=== PATIENT | female | born 2000 | race Caucasian/White ===

== ENCOUNTER 2020-12-04 07:39 | Day surgery (SDC) | payer OTHER ==
[2020-12-04 08:13] LABS: Absolute Lymphocytes (CBC) 1.9 K/uL (0.7-4.9); Basophils % 0.5 % (0-1.3); Hematocrit 40.6 % (36.0-45.0); Lymphocytes % 41.3 % (15.3-44.8); MPV 7.9 fL (7.6-11.3); RBC Red Blood Cell Count 4.53 M/uL (3.86-4.86)
[2020-12-04 08:24] LABS: BUN Blood Urea Nitrogen 13 mg/dL (7-18); Bicarbonate 27 mmol/L (21-32); Glucose Level 106 mg/dL (74-106); Potassium 4.3 mmol/L (3.5-5.1); Sodium Level 139 mmol/L (136-145)
[2020-12-04] MEDS ORDERED: Ringers Lactate 1,000 ML IV ONE (08:41)
[2020-12-04] MEDS: CEFAZOLIN/SWI 1gm 1 GM/10 ML SYR ONE ×3 (09:22→10:18)
[2020-12-04] MEDS ORDERED: BUPIVACAINE 0.5% PF 10 ML VIAL ONE (09:50)
[2020-12-04] MEDS ORDERED: METHYLENE BLUE 0.5% 10 ML AMP ONE (09:50)
[2020-12-04] MEDS ORDERED: CELECOXIB 100 MG CAPSULE ONE (09:52)
[2020-12-04] MEDS ORDERED: ACETAMINOPHEN 500 MG TAB ONE (09:52)
[2020-12-04] MEDS ORDERED: propofoL 200 MG/20 ML VIAL IV ONE (10:28)
[2020-12-04] MEDS ORDERED: MIDAZOLAM HCL 2 MG/2 ML INJ ONE (10:29)
[2020-12-04] MEDS ORDERED: ONDANSETRON 4 MG/2 ML VIAL ONE ×2 (10:29→12:34)
[2020-12-04] MEDS ORDERED: FENTANYL CITR 100 MCG/2 ML ONE ×2 (10:29→11:05)
[2020-12-04] MEDS ORDERED: dexAMETHasone 10 MG/ML VIAL ONE (10:30)
[2020-12-04] MEDS ORDERED: GLYCOPYRROLATE 0.2 MG/ML SYR ONE (10:30)
[2020-12-04] MEDS ORDERED: LIDOCAINE 1% MPF 5 ML VIAL ONE (10:30)
[2020-12-04] MEDS ORDERED: NEOSTIGMINE 1 MG/ML -5 ML ONE (10:30)
--- NOTE | 2020-12-04 11:02 | P.BOP ---
Preoperative diagnosis: infected pilonidal cyst Postoperative diagnosis: same Primary procedure: Wide excision of infected pilonidal [id number] Estimated blood loss: <10cc Specimen: cyst Findings: infected pilonidal cyst Anesthesia: General Transferred to: Recovery Room Condition: Good
[2020-12-04] MEDS ORDERED: KETOROLAC 30 MG/ML INJ ONE (11:05)
[2020-12-04] MEDS: FENTANYL CITR 100 MCG/2 ML ONE ×2 (11:12→11:40)
[2020-12-04 11:25] VITALS: O2SAT 100
--- NOTE | 2020-12-04 11:55 | DS ---
Diagnosis: Infected pilonidal cyst. Procedure: Wide excision of infected pilonidal cyst. Disposition: Home. Discharge Instructions: Packing daily. Follow up in my office on Friday if they need some help w ith the packing. Medications include Tylenol No. 3 q.4 hours p.r.n. pain going to be able to continue working the rest of the week. The patient is to have her antibiotics with the pain medi cation and just in case. Since we know she is going to use them anyway, we will proceed w ith the prescription. CANDE Voice ID: [id number] Report ID: [id number]
--- NOTE | 2020-12-04 11:55 | OP ---
Date of Procedure: 12/04/2020 Surgeon: Julien Jean MD Preoperative Diagnosis: Infected pilonidal cyst. Postoperative Diagnosis: Infected pilonidal cyst. Procedure: Wide excision of infected pilonidal cyst, 4 x 3 x 2 cm. Estimated Blood Loss: Less than 10 mL. Specimen: Cyst. Findings: Infected pilonidal cyst. Anesthesia: General plus local. Indication: This is the case of a 20-year-old patient, who comes to us with a tender buttock area an d parasacral region. When she was seen on Friday, she was so tender that she did not allow us to get into the pilonidal cyst under local anesthetic and she had eaten at that moment, so we proceeded to do an I and D of an abscess adjacent to this pilonidal cyst at the office and then booked her today f or wide excision of pilonidal cyst under anesthesia as patient allowed me. The benefits, alternative s, and risks of wide excision were fully explained, which included but not limited to infection, blee ding, damage to adjacent structures, anesthesia complication, nonhealing wound, IL, and even . She also understands this may not relieve symptoms. She might need more than one surgical interventi on. She understands she will require wound care in that area. Mother is at bedside. She feels comf ortable doing dressing changes. Procedure In Detail: The patient was brought to the operating room, placed in supine position. Anes thesia was done without complication. The patient was placed in prone position with proper protectio n. The cavity was re-delineated since the patient had a previous abscess in that region, so we proce eded to delineate the area and then after that make a wide excision of that area with the size descri bed above all the way down to coccyx bone. Bone was not exposed. The cyst was removed. The area wa s irrigated and the area was packed with iodoform packing. The patient tolerated the procedure well. Local anesthesia was applied to the area. The patient was sent to recovery in stable condition. DELMI/NISH Voice ID: [id number] Report ID: [id number]
[2020-12-04] MEDS ORDERED: CODEINE 30MG/APAP 300MG TAB ONE (12:33)
[2020-12-04 12:55] VITALS: BP 103/56; TEMP 97.5
== END 2020-12-04 12:50 | disposition home or self-care (01) ==
LOC: OR 07:39
PROVIDERS: ATTEND Surgery
PROC: 0JB90ZZ Excision of Buttock Subcutaneous Tissue and Fascia, Open Approach (ICD-10-PCS; principal; 2020-12-04 10:00)
DX: L05.91 Pilonidal cyst without abscess (principal); Z20.822 Contact with and (suspected) exposure to COVID-19
CPT/HCPCS: 85025; 80048; 36415; 81025; 88304; 11770; U0003; J2704; J2250; J3010 ×3; J1100; J2710; J0690; J7120; J2405 ×2

== ENCOUNTER 2021-05-03 15:36 | Emergency (ER) | payer OTHER ==
[2021-05-03 16:40] LABS: Urine Blood Negative (Negative); Urine Glucose Negative (Negative); Urine Protein Negative (Negative)
[2021-05-03] MEDS ORDERED: NA CHLORIDE 0.9% 1,000 ML ONE (17:02)
[2021-05-03] MEDS ORDERED: METOCLOPRAMIDE 10 MG/2mL INJ ONE (17:02)
[2021-05-03] MEDS ORDERED: DIPHENHYDRAMINE 50 MG/ML VIAL ONE ×2 (17:02→17:25)
--- NOTE | 2021-05-03 17:02 | RAD REPORT ---
EXAM DESCRIPTION: CT - Head Brain Wo Cont - 05/03/2021 4:51 pm CLINICAL HISTORY: HEADACHE COMPARISON: No comparisons TECHNIQUE: All CT scans are performed using dose optimization technique as appropriate and may inclu de automated exposure control or mA/KV adjustment according to patient size. FINDINGS: No intracranial hemorrhage, hydrocephalus or extra-axial fluid collection.No areas of brai n edema or evidence of midline shift. The paranasal sinuses and mastoids are clear. The calvarium is intact. IMPRESSION: No acute intracranial abnormality.
[2021-05-03] MEDS ORDERED: LORazepam 2 MG/ML VIAL ONE (17:24)
[2021-05-03 17:27] LABS: SARS-COV-2 RT PCR POSITIVE (NEGATIVE)
[2021-05-03 17:31] LABS: Absolute Lymphocytes (CBC) 2.2 K/uL (0.7-4.9); Hematocrit 42.2 % (36.0-45.0); Lymphocytes % 50.3 % (15.3-44.8); MPV 8.6 fL (7.6-11.3); RBC Red Blood Cell Count 4.67 M/uL (3.86-4.86)
[2021-05-03 17:39] LABS: ALT/SGPT 22 U/L (12-78); AST/SGOT 22 U/L (15-37); Albumin 3.7 g/dL (3.4-5.0); Alkaline Phosphatase 50 U/L (45-117); BUN Blood Urea Nitrogen 9 mg/dL (7-18); Bicarbonate 31 mmol/L (21-32); Bilirubin Direct < 0.1 mg/dL (0-0.2); Bilirubin Total 0.2 mg/dL (0.2-1.0); Glucose Level 96 mg/dL (74-106); Lipase 66 U/L (73-393); Potassium 3.8 mmol/L (3.5-5.1); Protein, Total 7.1 g/dL (6.4-8.2); Sodium Level 140 mmol/L (136-145)
--- NOTE | 2021-05-03 18:02 | ER ---
Nurse's Notes [facility] Name: Veda Kraus Age: 20 yrs Sex: Female : 2000 Arrival Date: 05/03/2021 Time: 15:41 Bed 24 Private MD: Tatum Arroyo K Diagnosis: Coronavirus infection, unspecified Presentation: 05/03 15:59 Chief complaint: Patient states: she has severe neck pain that began 05/01/2021. ap3 Patient denies having this pain in the past. Patient also reports having headache, vomiting, and fever. Coronavirus screen: fever, headache, muscle pain, Client presents with at least one sign or symptom that may indicate coronavirus-19. Standard/surgical mask placed on the client. Provider contacted for isolation considerations. Ebola Screen: No symptoms or risks identified at this time. Initial Sepsis Screen: Does the patient meet any 2 criteria? No. Patient's initial sepsis screen is negative. Does the patient have a suspected source of infection? No. Patient's initial sepsis screen is negative. Risk Assessment: Do you want to hurt yourself or someone else? Patient reports no desire to harm self or others. Onset of symptoms was May 01, 2021. 15:59 Method Of Arrival: Ambulatory ap3 15:59 Acuity: SHIRA 3 ap3 Triage Assessment: 16:04 General: Appears in no apparent distress. Behavior is cooperative, anxious. Pain: ap3 Complains of pain in posterior neck, back, and head Pain began 2-3 days ago. Neuro: Level of Consciousness is awake, alert, obeys commands, Oriented to person, place, time, situation, Appropriate for age Moves all extremities. Gait is steady, Speech is normal, Facial symmetry appears normal. Respiratory: Airway is patent Respiratory effort is even, unlabored, Respiratory pattern is regular, symmetrical. GI: Reports nausea, vomiting. 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 Flu vaccine is up to date. - Social history:: Smoking status: Patient reports the use of cigarette tobacco products, smokes one-half pack cigarettes per day, Reported history of juuling and/or vaping. Patient uses street drugs, marijuana. Screenin:05 Abuse screen: Denies threats or abuse. Nutritional screening: No deficits noted. ap3 Tuberculosis screening: No symptoms or risk factors identified. Fall Risk None identified. Assessment: 16:00 General: Appears uncomfortable, Behavior is anxious. Pain:. Neuro: Level of ke1 Consciousness is awake, alert, Oriented to person, place, time, situation, Appropriate for age. 17:37 Reassessment: Patient is alert, oriented x 3, equal unlabored respirations, skin jd3 warm/dry/pink. pt expressing anxiety. provider with verbal order for medication and to bedside to discuss plan of care with the pt. 18:01 Reassessment: Patient and/or family updated on plan of care and expected duration. Pain jd3 level reassessed. Patient is alert, oriented x 3, equal unlabored respirations, skin warm/dry/pink. pt reporting to want to leave AMA. pt signed AMA form. pt was instructed to wait for ride due to medications she received. pt reported her mother was on the way. even and steady gait to lobby to wait for ride. Vital Signs: 15:59 BP 122 / 80; Pulse 87; Resp 18; Temp 99.9(O); Pulse Ox 100% on R/A; Weight 61.23 kg; ap3 Height 5 ft. 2 in. (157.48 cm); Pain 7/10; 17:38 BP 124 / 84; Pulse 86; Resp 19 S; Pulse Ox 100% on R/A; jd3 15:59 Body Mass Index 24.69 (61.23 kg, 157.48 cm) ap3 ED Course: 15:41 Patient arrived in ED. am2 15:43 Tatum Arroyo MD is Private Physician. am2 15:45 Joao Gomez PA is PHCP. [facility] 15:45 Ugo Soto MD is Attending Physician. jmm 16:01 Triage completed. ap3 16:06 Arm band placed on right wrist. ap3 16:18 COVID-19/FLU A+B (Document "Date of Onset" if Symptomatic) Sent. jd3 16:50 CT Head Brain wo Cont In Process Unspecified. EDMS 16:58 Syd Garcia, SHANT is Primary Nurse. ke1 17:12 COVID-19/FLU A+B (Document "Date of Onset" if Symptomatic) Sent. ld1 17:12 Inserted saline lock: 20 gauge in right antecubital area, using aseptic technique. ld1 Blood collected. 17:38 Patient has correct armband on for positive identification. Bed in low position. Call jd3 light in reach. Side rails up X 1. Pulse ox on. NIBP on. 18:01 Tatum Arroyo MD is Referral Physician. [facility] 18:01 No provider procedures requiring assistance completed. IV discontinued, intact, jd3 bleeding controlled, No redness/swelling at site. Pressure dressing applied. Administered Medications: 17:11 Drug: NS 0.9% 1000 ml Route: IV; Rate: 1 bolus; Site: right antecubital; ld1 18:04 Follow up: Response: No adverse reaction; IV Status: Order to discontinue infusion; IV jd3 Intake: 700ml 17:11 Drug: Reglan (metoCLOPramide) 20 mg Route: IVP; Site: right antecubital; ld1 18:04 Follow up: Response: No adverse reaction jd3 17:11 Drug: diphenhydrAMINE 12.5 mg Route: IVP; Site: right antecubital; ld1 18:05 Follow up: Response: No adverse reaction jd3 17:35 Drug: Benadryl (diphenhydrAMINE) 25 mg Route: IVP; Site: right antecubital; ke1 18:03 Follow up: Response: No adverse reaction jd3 17:36 Drug: Ativan (LORazepam) 0.5 mg Route: IVP; Site: right antecubital; ke1 18:03 Follow up: Response: No adverse reaction jd3 Intake: 18:04 IV: 700ml; Total: 700ml. jd3 Outcome: 18:01 AMA AMA form signed jd3 18:01 Condition: stable 18:01 Instructed on follow up and referral plans. 18:05 Patient left the ED. jd3 Signatures: Dispatcher [employer] EDMS Joao Gomez PA PA jmm Moreno, Amanda am2 Jian Hoyt RN RN jd3 Meena Tinajero, RN RN ap3 Tabatha Gorman, RN RN ld1 Syd Garcia, RN RN ke1
--- NOTE | 2021-05-03 18:02 | EDPHYS ---
Physician Documentation [facility] Name: Veda Kraus Age: 20 yrs Sex: Female : 2000 Arrival Date: 05/03/2021 Time: 15:41 Bed 24 Private MD: Tatum Arroyo K ED Physician Ugo Soto HPI: 05/03 16:40 This 20 yrs old Female presents to ER via Ambulatory with complaints of Neck Pain, jmm >24Hrs Old, Headache. 16:40 The patient complains of pain to the left base of the skull and right base of the jmm skull. Onset: The symptoms/episode began/occurred gradually, 2 day(s) ago. Associated signs and symptoms: Pertinent positives: fever, vomiting. This is a 20-year-old female with history of chronic back pain that presents emerged department with complaints of headache, chills, back pain, vomiting. Patient states symptoms began this past Friday with some chills and states that her lower back pain ascended up to her neck into the base of her skull. Patient states that she normally does vomit in the mornings that she attributes to anxiety. Patient denies abdominal pain but states having some shortness of breath.. 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 Flu vaccine is up to date. - Social history:: Smoking status: Patient reports the use of cigarette tobacco products, smokes one-half pack cigarettes per day, Reported history of juuling and/or vaping. Patient uses street drugs, marijuana. ROS: 16:40 Constitutional: Positive for body aches, chills. jmm 16:40 Neck: Positive for pain at rest. 16:40 Respiratory: Positive for shortness of breath. 16:40 Abdomen/GI: Positive for vomiting. 16:40 Back: Positive for pain with movement. 16:40 Neuro: Positive for headache. 16:40 All other systems are negative. Exam: 16:40 Constitutional: This is a well developed, well nourished patient who is awake, alert, jmm and in no acute distress. Head/Face: atraumatic. Eyes: EOMI, no conjunctival erythema appreciated ENT: Moist Mucus Membranes 16:40 Chest/axilla: Normal chest wall appearance and motion. 16:40 Skin: General appearance color normal MS/ Extremity: Moves all extremities, no obvious deformities appreciated, no edema noted to the lower extremities Neuro: Awake and alert Psych: Behavior is normal, Mood is normal, Patient is cooperative and pleasant 16:40 Neck: ROM/movement: is normal, is supple. 16:40 Cardiovascular: Rate: normal, Rhythm: regular, Pulses: no pulse deficits are appreciated. 16:40 Respiratory: the patient does not display signs of respiratory distress, Respirations: normal, Breath sounds: are clear throughout. 16:40 Abdomen/GI: Inspection: abdomen appears normal, Bowel sounds: normal, Palpation: soft, nontender, in all quadrants. 16:40 Back: CVA tenderness, is absent. 16:40 Musculoskeletal/extremity: ROM: intact in all extremities. Vital Signs: 15:59 BP 122 / 80; Pulse 87; Resp 18; Temp 99.9(O); Pulse Ox 100% on R/A; Weight 61.23 kg; ap3 Height 5 ft. 2 in. (157.48 cm); Pain 7/10; 17:38 BP 124 / 84; Pulse 86; Resp 19 S; Pulse Ox 100% on R/A; jd3 15:59 Body Mass Index 24.69 (61.23 kg, 157.48 cm) ap3 MDM: 16:39 Patient medically screened. [facility] 18:00 Data reviewed: vital signs, nurses notes. ED course: After administration of Reglan, [facility] patient became more anxious. Patient states her nausea was relieved. But requested to leave. Notify the patient she was Covid positive for still waiting the rest of the studies. Patient appeared to be able to make rational decisions and decided that she would prefer to sign out AGAINST MEDICAL ADVICE. Patient was given strict return precautions. Patient understood and agrees to plan of care.. 05/03 16:06 Order name: COVID-19/FLU A+B (Document "Date of Onset" if Symptomatic); Complete Time: ap3 17:36 02 16:39 Order name: Basic Metabolic Panel; Complete Time: 17:40 [facility] 05/03 16:39 Order name: CBC with Diff; Complete Time: 17:36 [facility] 05/03 16:39 Order name: Hepatic Function; Complete Time: 17:40 [facility] 05/03 16:39 Order name: Lipase; Complete Time: 17:40 [facility] 05/03 16:39 Order name: [place] Screen Profile [facility] 05/03 16:39 Order name: Strep; Complete Time: 17:38 [facility] 05/03 16:40 Order name: Urine Dipstick-Ancillary; Complete Time: 16:44 [facility] 05/03 16:40 Order name: CT Head Brain wo Cont; Complete Time: 17:03 [facility] 05/03 16:40 Order name: Urine --Ancillary (enter results); Complete Time: 17:03 [facility] 05/03 17:37 Order name: Throat Culture [facility] 05/03 16:14 Order name: Urine Dipstick-Ancillary (obtain specimen); Complete Time: 16:59 [facility] 05/03 16:14 Order name: Urine Test (obtain specimen); Complete Time: 16:59 [facility] 05/03 16:39 Order name: IV Saline Lock; Complete Time: 17:12 [facility] 05/03 16:39 Order name: Labs collected and sent; Complete Time: 17:12 [facility] Administered Medications: 17:11 Drug: NS 0.9% 1000 ml Route: IV; Rate: 1 bolus; Site: right antecubital; ld1 18:04 Follow up: Response: No adverse reaction; IV Status: Order to discontinue infusion; IV jd3 Intake: 700ml 17:11 Drug: Reglan (metoCLOPramide) 20 mg Route: IVP; Site: right antecubital; ld1 18:04 Follow up: Response: No adverse reaction jd3 17:11 Drug: diphenhydrAMINE 12.5 mg Route: IVP; Site: right antecubital; ld1 18:05 Follow up: Response: No adverse reaction jd3 17:35 Drug: Benadryl (diphenhydrAMINE) 25 mg Route: IVP; Site: right antecubital; ke1 18:03 Follow up: Response: No adverse reaction jd3 17:36 Drug: Ativan (LORazepam) 0.5 mg Route: IVP; Site: right antecubital; ke1 18:03 Follow up: Response: No adverse reaction jd3 Disposition: 05/04 12:52 Co-signature as Attending Physician, Ugo Soto MD I agree with the assessment and sp3 plan of care. Disposition Summary: 05/03/21 18:01 Left Against Medical Advice Location: Home jmm Problem: new jmm Symptoms: are unchanged jmm Condition: Stable jmm Diagnosis - Coronavirus infection, unspecified jmm Followup: [facility] - With: Tatum Arroyo MD - When: 2 - 3 days - Reason: Recheck today's complaints, Continuance of care, Re-evaluation by your physician Discharge Instructions: - Discharge Summary Sheet [facility] - COVID-19 jmm Signatures: Dispatcher [employer] Joao Ramirez PA PA jmm Davies, Jonathon, RN RN jd3 eMena Tinajero RN RN ap3 Tabatha Gorman RN RN ld1 Ugo Soto MD MD sp3 Syd Garcia RN RN ke1
[2021-05-03 18:31] VITALS: TEMP 99.9; O2SAT 100
[2021-05-03 18:32] VITALS: BP 124/84
== END 2021-05-03 18:05 | disposition left against medical advice (07) ==
LOC: ER 15:36
DX: U07.1 COVID-19 (principal); F17.210 Nicotine dependence, cigarettes, uncomplicated
CPT/HCPCS: 96361; 87070; 85025; 80048; 36415; 86308; 81025; 80076; 87081; 81003; 83690; 0240U; 70450; 96375; 96374; 99284; J2765; J1200 ×2; J7030

== ENCOUNTER 2023-07-28 13:57 | Emergency (ER) | payer OTHER ==
--- OUTSIDE RECORDS SUMMARY | 2023-07-28 14:00 | XMS REPORT | Continuity of Care Document ---
Author Name Unknown Address [address] [facility] [address] [place] [address] [facility] thconnect Address [address] [address] [address] [place] [address] Care Team Providers Care Molded Goods Operator Name Role Phone Lazo, Patti Attending Clinician Unavailable [email or web address]_Kadiyala_S Attending Clinician Unavaila ble [email or web address]_Kadiyala_S Admitting Clinician Unavaila ble Payers Payer Name Policy Type Policy Number Effective Date Expirati on Date Source AET[employer] 53 [id number] 2022 00:00:00 [facility] Problems Condition Name Condition Details Condition Category Status Onset Date Resolution Date Last Treatment Date Treating Clinician Comments Source Initiation of depot contracept ion done Initiation of Depot Contracept ion Done Problem Active 08-12 00:00: 00 [facility] Surveillan ce of subcutaneo us contracept dell implant Surveillan ce of Subcutaneo us Contracept dell Implant Problem Active 08-12 00:00: 00 [facility] Major depression , single episode Major Depression , Single Episode Problem Active 2017-03 00:00: 00 [facility] Gonorrhea of lower genitourin carol tract Gonorrhea of Lower Genitourin carol Tract Problem Active 10-27 00:00: 00 [facility] Counseling Counseling Problem Active 10-22 00:00: 00 [facility] Irregular periods Irregular Periods Problem Active 04-10 00:00: 00 [facility] Abnormal weight gain Abnormal Weight Gain Problem Active 04-10 00:00: 00 [facility] Herpetic vulvovagin itis Herpetic Vulvovagin itis Problem Active 10-08 00:00: 00 [facility] Chlamydial infection Chlamydial Infection Problem Active 10-08 00:00: 00 [facility] 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 High 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 al Behavior Problem Active 10-01 00:00: 00 [facility] Ulceration of vulva Ulceration of Vulva Problem Active 10-01 00:00[facility] Contracept ion care education Contracept ion Care Education Problem Active 08-27 00:00: 00 [facility] Postcoital bleeding Postcoital Bleeding Problem Active 08-08 00:00: 00 [facility] Acute vaginitis Acute Vaginitis Problem Active 08-08 00:00: 00 [facility] Gynecologi c examinatio n Gynecologi c Examinatio n Problem Active 06-12 00:00: 00 [facility] [id number] Hyperphagi a Problem [facility] [id number] Moderate major depression Problem [facility] [id number] URVASHI (generaliz ed anxiety disorder) Problem [facility] Social History Social Habit Start Date Stop Date Quantity Comments Source History of Tobacco Use [facility] Sex Assigned At [facility] Smoking Status Start Date Stop Date Source Current Every Day Smoker [facility] Former Smoker 2023-02-18 00:00:00 2023-02-18 00:00:00 [facility] Medications Ordered Medication Name Filled Medication Name Start Date Stop Date Current Medication? Ordering Clinician Indication Dosage Frequency Signature (SIG) Comments Components Source No Known Medications No Known Medications No [facility] No Known Medications No Known Medications No [facility] Vital Signs Vital Name Observation Time Observation Value Comments S ource Height 2023-07-15 00:00:00 62 [in_i] [facility] BMI (Body Mass Index) 2023-07-15 00:00:00 24.1 kg/m2 [facility] Body Weight 2023-07-15 00:00:00 132 [lb_av] [facility] BP Diastolic 2023-07-15 00:00:00 72 mm[Hg] [facility] BP Systolic 2023-07-15 00:00:00 128 mm[Hg] [facility] height 2023-02-19 16:20:00 64 [in_i] [facility] weight 2023-02-19 16:20:00 140 [lb_av] Comm on [facility] bmi 2023-02-19 16:20:00 24.03 kg/m2 Comm [facility] height 2023-01-23 10:20:00 64 [in_i] [facility]mo n [facility] weight 2023-01-23 10:20:00 141 [lb_av] Comm on [facility] temperature 2023-01-23 10:20:00 97.1 [degF] Com mon [facility] bmi 2023-01-23 10:20:00 24.2 kg/m2 Commo [facility] oximetry 2023-01-23 10:20:00 [facility] 2023-01-23 10:20:00 17 /min [facility] blood pressure systolic 2023-01-23 10:20:00 144 mm[Hg] [facility] blood pressure diastolic 2023-01-23 10:20:00 82 mm[Hg] [facility] Plan of Care Planned Activity Planned Date Details Comments Source Diagnostic Test Pending 2023-07-15 00:00:00 Ox-eye dasha IgE Ab [Units/volume] in Serum [code = 6196-0] [facility] Diagnostic Test Pending 2023-07-15 00:00:00 Indirect antiglobulin test.IgG specific reagent [Presence] in Serum or Plasma [code = 1005-8] [facility] Future Appointment 2024-07-15 09:15:[address]; [address] [id number] [facility] Encounters Start Date/Time End Date/Time Encounter Type Admission Type Attending [facility] Care Facility Care Department Encounter ID Source 2023-02-18 14:44:00 Outpatient Patti Lazo [facility] [id number] [facility] 2023-01-23 10:24:01 Outpatient Patti Lazo [facility] [id number] [facility] 2023-07-15 00:00:00 2023-07-15 00:00:00 LUCHO Saleh: [address], [place] [address] , Ph. Formerly [facility] - GC_GCBZW_La [facility]* [id number] [facility] 2023-02-19 00:00:00 2023-02-19 00:00:00 OFFICE VISIT ESTAB PT LEVEL 3 [facility] [id number] [facility] 2023-01-23 00:00:00 2023-01-23 00:00:00 OFFICE VISIT NEW PT LEVEL 3 [facility] [id number] [facility] 2023-01-22 00:00:00 2023-01-22 00:00:00 Outpatient GC_GCBZW_Ka diyala_S [facility] [id number] [facility] Results Test Description Test Time Test Comments Results Result Co mments Source HEMOGLOBIN [id number] 00:00:00* Test Item Value Reference Range Interpretation Comme nts HEMOGLOBIN A1c (test code = 4548-4) 5.3 % See_Comment [Automated [employer] Orders] The system which generated this result transmitted reference range: 4.2-5.6 %. The reference range was not used to interpret this result as normal/abnormal. LIPID PANEL WITH REFLEX DIRECT [id number] 00:00:00* Test Item Value Reference Range Interpretation Comme nts CALC LDL CHOL (test code = 65670-4) 84 MG/DL See_Comment [Automated [employer] Orders] The system which generated this result transmitted reference range: <100 MG/DL. The reference range was not used to interpret this result as normal/abnormal. CHOLESTEROL (test code = 2093-3) 160 MG/DL See_Comment [Automated messa ge] The system which generated this result transmitted reference range: <200 MG/DL. The reference range was not used to interpret this result as normal/abnormal. HDL CHOLESTEROL (test code = 2085-9) 62 MG/DL See_Comment [Automated [employer]] The system which generated this result transmitted reference range: >39 MG/DL. The reference range was not used to interpret this result as normal/abnormal. RISK RATIO LDL/HDL (test code = 66712-2) 1.35 RATIO See_Comment [Automated message] The system which generated this result transmitted reference range: <3.22 RATIO. The reference range was not used to interpret this result as normal/abnormal. TRIGLYCERIDES (test code = 2571-8) 61 MG/DL See_Comment [Automated [employer]] The system which generated this result transmitted reference range: <150 MG/DL. The reference range was not used to interpret this result as normal/abnormal. TSH + FREE T4 [id number] 00:00:00* Test Item Value Reference Range Interpretation Comme nts FREE T4 (THYROXINE) (test code = 3024-7) 0.90 NG/DL See_Comment [Automated message] The system which generated this result transmitted reference range: 0.80-1.90 NG/DL. The reference range was not used to interpret this result as normal/abnormal. TSH, THIRD GENERATION (test code = 18765-1) 1.540 UIU/ML See_Comment [Automated messa ge] The system which generated this result transmitted reference range: 0.400-4.100 UIU/ML. The reference range was not used to interpret this result as normal/abnormal. COMPREHENSIVE METABOLIC [id number] 00:00:00* Test Item Value Reference Range Interpretation Comme nts ALBUMIN (test code = 1751-7) 4.3 G/DL See_Comment [Automated [employer]] The system which generated this result transmitted reference range: 3.5-5.2 G/DL. The reference range was not used to interpret this result as normal/abnormal. ALKALINE PHOSPHATASE (test code = 6768-6) 51 U/L See_Comment [Automated message] The system which generated this result transmitted reference range: 40-115 U/L. The reference range was not used to interpret this result as normal/abnormal. BILIRUBIN, TOTAL (test code = 1975-2) 0.4 MG/DL See_Comment [Automated message] The system which generated this result transmitted reference range: <=1.2 MG/DL. The reference range was not used to interpret this result as normal/abnormal. BUN (test code = 3094-0) 10 MG/DL See_Comment [Automated messa ge] The system which generated this result transmitted reference range: 6-20 MG/DL. The reference range was not used to interpret this result as normal/abnormal. CALCIUM (test code = 37894-8) 9.1 MG/DL See_Comment [Automated messa ge] The system which generated this result transmitted reference range: 8.5-10.5 MG/DL. The reference range was not used to interpret this result as normal/abnormal. CALC A/G RATIO (test code = 1759-0) 2.0 RATIO See_Comment [Automated messa ge] The system which generated this result transmitted reference range: 1.0-2.6 RATIO. The reference range was not used to interpret this result as normal/abnormal. CALC BUN/CREAT (test code = 3097-3) 15 RATIO See_Comment [Automated messa ge] The system which generated this result transmitted reference range: 6-28 RATIO. The reference range was not used to interpret this result as normal/abnormal. CALC GLOBULIN (test code = 42132-0) 2.2 G/DL See_Comment [Automated messa ge] The system which generated this result transmitted reference range: 1.9-3.7 G/DL. The reference range was not used to interpret this result as normal/abnormal. CARBON DIOXIDE (test code = 1963-8) 24 MEQ/L See_Comment [Automated messa ge] The system which generated this result transmitted reference range: 19-31 MEQ/L. The reference range was not used to interpret this result as normal/abnormal. CHLORIDE (test code = 2075-0) 106 MEQ/L See_Comment [Automated messa ge] The system which generated this result transmitted reference range: 95-107 MEQ/L. The reference range was not used to interpret this result as normal/abnormal. CREATININE (test code = 2160-0) 0.68 MG/DL See_Comment [Automated messa ge] The system which generated this result transmitted reference range: 0.60-1.30 MG/DL. The reference range was not used to interpret this result as normal/abnormal. eGFR (2020 CKD-EPI) (test code = 32984-6) 125 ML/MIN/1.73 See_Comment [Automated message] The system which generated this result transmitted reference range: >60 ML/MIN/1.73. The reference range was not used to interpret this result as normal/abnormal. GLUCOSE (test code = 1558-6) 93 MG/DL See_Comment [Automated messa ge] The system which generated this result transmitted reference range: 70-99 MG/DL. The reference range was not used to interpret this result as normal/abnormal. POTASSIUM (test code = 2823-3) 4.8 MEQ/L See_Comment [Automated messa ge] The system which generated this result transmitted reference range: 3.5-5.4 MEQ/L. The reference range was not used to interpret this result as normal/abnormal. PROTEIN, TOTAL (test code = 2885-2) 6.5 G/DL See_Comment [Automated messa ge] The system which generated this result transmitted reference range: 6.1-8.3 G/DL. The reference range was not used to interpret this result as normal/abnormal. AST (test code = 1920-8) 17 U/L See_Comment [Automated messa ge] The system which generated this result transmitted reference range: 9-40 U/L. The reference range was not used to interpret this result as normal/abnormal. ALT (test code = 1742-6) 17 U/L See_Comment [Automated messa ge] The system which generated this result transmitted reference range: 5-40 U/L. The reference range was not used to interpret this result as normal/abnormal. SODIUM (test code = 2951-2) 141 MEQ/L See_Comment [Automated messa ge] The system which generated this result transmitted reference range: 133-146 MEQ/L. The reference range was not used to interpret this result as normal/abnormal.
[2023-07-28 15:41] LABS: Absolute Lymphocytes (CBC) 1.6 K/uL (0.7-4.9); Absolute Monocytes 0.3 K/uL (0.1-1.3); Absolute Neutrophil 3.1 K/uL (1.8-8.0); Basophils % 0.4 % (0-1.3); Eosinophils % 0.6 % (0-4.4); Hematocrit 38.9 % (36.0-45.0); Hemoglobin 13.2 g/dL (12.0-15.0); Lymphocytes % 31.2 % (15.3-44.8); MCH 30.7 pg (27.0-35.0); MCHC 33.9 g/dL (32.0-36.0); MCV 90.4 fL (80-100); MPV 9.1 fL (7.6-11.3); Monocytes % 6.9 % (3.3-12.3); Neutrophils % 60.9 % (41.7-73.7); Nucleated Red Blood Cells % 0.1 % (0-0); Platelets 207 thou/uL (152-406); Red Cell Distribution Width 12.6 % (12.1-15.2)
[2023-07-28 15:43] LABS: Specific Gravity < 1.005 (1.005-1.030); Sqamous Epithelial <5 /HPF (None Seen); Urine Bacteria None Seen /HPF (<20); Urine Bilirubin NEGATIVE (Negative); Urine Blood Negative (Negative); Urine Clarity Turbid (Clear); Urine Color Colorless (Yellow); Urine Culture Reflex Order NOT NEEDED; Urine Glucose NEGATIVE (Negative); Urine Ketones NEGATIVE (Negative); Urine Micro Reflex YN NO BILL MICROSCOPIC; Urine Nitrite NEGATIVE (Negative); Urine Protein NEGATIVE (Negative); Urine RBC <5 /HPF (None Seen); Urine Urobilinogen Normal (Normal); Urine WBC <5 /HPF (<5)
[2023-07-28 15:50] LABS: Barbiturates NEGATIVE (NEGATIVE); Benzodiazepines NEGATIVE (NEGATIVE); Cocaine NEGATIVE (NEGATIVE); METHAMPHETAM NEGATIVE (NEGATIVE); Methadone NEGATIVE (NEGATIVE); Opiates NEGATIVE (NEGATIVE); Phencyclidine NEGATIVE (NEGATIVE); THC Cannibis POSITIVE (NEGATIVE)
--- NOTE | 2023-07-28 15:54 | RAD REPORT ---
EXAM DESCRIPTION: RAD - Chest Single View - 07/28/2023 3:46 pm CLINICAL HISTORY: PALPITATIONS Chest pain. COMPARISON: Chest Pa And Lat (2 Views) dated 12/05/2016 FINDINGS: Portable technique limits examination quality. The lungs are grossly clear. The heart is normal in size. No displaced fractures. IMPRESSION: No acute intrathoracic process suspected.
[2023-07-28 15:59] LABS: Anion Gap 3.4 mEq/L (5.0-15.0); BUN Blood Urea Nitrogen 6 mg/dL (7-18); Bicarbonate 29 mEq/L (21-32); Glomerular Filtration Rate 109 ml/min (=/>90); Glucose Level 115 mg/dL (74-106); Potassium 3.4 mEq/L (3.5-5.1); Sodium Level 137 mEq/L (136-145)
[2023-07-28 16:01] LABS: Troponin High Sensitivity < 3.0 pg/mL (<58.9)
--- NOTE | 2023-07-28 16:25 | ER ---
Nurse's Notes [facility] Name: Veda Kraus Age: 22 yrs Sex: Female : 2000 Arrival Date: 07/28/2023 Time: 13:57 Bed 8 Private MD: Diagnosis: Palpitations Presentation: 07/27 14:08 Chief complaint: Patient states: "I feel shaky, like my heart is beating fast, and I as6 have chest pain". Coronavirus screen: At this time, the client does not indicate any symptoms associated with coronavirus-19. Ebola Screen: No symptoms or risks identified at this time. Initial Sepsis Screen: Does the patient meet any 2 criteria? No. Patient's initial sepsis screen is negative. Does the patient have a suspected source of infection? No. Patient's initial sepsis screen is negative. Risk Assessment: Do you want to hurt yourself or someone else? Patient reports no desire to harm self or others. Onset of symptoms was July 28, 2023. 14:08 Method Of Arrival: Ambulatory as6 14:08 Acuity: SHIRA 3 as6 Triage Assessment: 14:10 General: Appears in no apparent distress. Behavior is calm, cooperative. Pain: as6 Complains of pain in chest. 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 - Infectious Disease History:: Denies. - Social history:: Smoking status: Patient denies any tobacco usage or history of. Screenin:15 [facility] ED Fall Risk Assessment (Adult) History of falling in the last 3 months, rs5 including since admission No falls in past 3 months (0 pts) Confusion or Disorientation No (0 pts) Intoxicated or Sedated No (0 pts) Impaired Gait No (0 pts) Mobility Assist Device Used No (0 pt) Altered Elimination No (0 pt) Score/Fall Risk Level 0 - 2 = Low Risk Oriented to surroundings, Maintained a safe environment. 14:15 Abuse screen: Denies threats or abuse. Nutritional screening: No deficits noted. rs5 Tuberculosis screening: No symptoms or risk factors identified. Assessment: 14:30 Reassessment: Pt arrived in room . rs5 14:33 General: Appears in no apparent distress. uncomfortable, Behavior is cooperative, rs5 anxious. Pain: Denies pain. Neuro: Level of Consciousness is awake, alert, obeys commands, Oriented to person, place, time, situation. Cardiovascular: Patient's skin is warm and dry. Rhythm is regular. Cardiovascular: Reports palpitations. Respiratory: Airway is patent Respiratory effort is even, unlabored, Respiratory pattern is regular, symmetrical. GI: Abdomen is flat, non-distended, Abd is soft and non tender X 4 quads. : No signs and/or symptoms were reported regarding the genitourinary system. EENT: No signs and/or symptoms were reported regarding the EENT system. Derm: Skin is intact, Skin is pink, warm \\T\\ dry. Musculoskeletal: Range of motion: intact in all extremities. 14:45 Reassessment: Awaiting provider to put in orders. rs5 15:00 Reassessment: Awaiting provider to put in orders, provider notified. rs5 15:00 Cardiovascular: Denies palpitations, Rhythm is regular. rs5 15:00 Reassessment: Patient and/or family updated on plan of care and expected duration. Pain rs5 level reassessed. Patient is alert, oriented x 3, equal unlabored respirations, skin warm/dry/pink. 15:48 Reassessment: No changes from previously documented assessment. rs5 16:20 Reassessment: No changes from previously documented assessment. rs5 Vital Signs: 14:08 BP 127 / 91; Pulse 100; Resp 18 S; Temp 97.9(O); Pulse Ox 100% on R/A; Weight 57.61 kg as6 (R); Height 5 ft. 3 in. (R); Pain 3/10; 16:20 BP 120 / 81; Pulse 80; Resp 18; Pulse Ox 99% on R/A; rs5 14:08 Body Mass Index 22.50 (57.61 kg, 160.02 cm) as6 14:08 Pain Scale: Adult as6 ED Course: 14:01 Patient arrived in ED. im 14:02 Candace Feldman MD is Attending Physician. gb1 14:09 Triage completed. as6 14:10 Arm band placed on. as6 14:15 Patient has correct armband on for positive identification. Placed in gown. Bed in low rs5 position. Call light in reach. Side rails up X2. 14:15 No provider procedures requiring assistance completed. rs5 15:15 German Mendoza, RN is Primary Nurse. rs5 15:30 Inserted saline lock: 20 gauge in right antecubital area, using aseptic technique. rs5 Blood collected. 15:48 XRAY Chest (1 view) In Process Unspecified. EDMS 15:49 EKG done, by ED staff. jg11 16:35 IV discontinued, intact, bleeding controlled, No redness/swelling at site. Pressure rs5 dressing applied. Administered Medications: No medications were administered Medication: 15:49 VIS not applicable for this client. rs5 Outcome: 16:24 Discharge ordered by . ashkan 16:35 Discharged to home ambulatory, rs5 16:35 Condition: stable 16:35 Discharge instructions given to patient, family, Instructed on discharge instructions, follow up and referral plans. Demonstrated understanding of instructions, follow-up care, 16:38 Patient left the ED. rs5 Signatures: Dispatcher [employer] EDSukhjinder Rico RN RN as6 German Mendoza, RN RN rs5 Tarsha Farah Gina, MD MD gb1 Vaughn Gonzales jg11 Corrections: (The following items were deleted from the chart) 15:46 15:35 Inserted saline lock: 20 gauge in right antecubital area, using aseptic rs5 technique. Blood collected. rs5
--- NOTE | 2023-07-28 16:25 | EDPHYS ---
Physician Documentation [facility] Name: Veda Kraus Age: 22 yrs Sex: Female : 2000 Arrival Date: 07/28/2023 Time: 13:57 Bed 8 Private MD: ED Physician Candace Feldman HPI: 07/27 16:24 This 22 yrs old Female presents to ER via Ambulatory with complaints of gb1 Palpitations. 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 - Infectious Disease History:: Denies. - Social history:: Smoking status: Patient denies any tobacco usage or history of. Exam: 16:24 Constitutional: This is a well developed, well nourished patient who is awake, alert, gb1 and in no acute distress. Head/Face: Normocephalic, atraumatic. Eyes: Pupils equal round and reactive to light, extra-ocular motions intact. Lids and lashes normal. Conjunctiva and sclera are non-icteric and not injected. Cornea within normal limits. Periorbital areas with no swelling, redness, or edema. ENT: Nares patent. No nasal discharge, no septal abnormalities noted. Tympanic membranes are normal and external auditory canals are clear. Oropharynx with no redness, swelling, or masses, exudates, or evidence of obstruction, uvula midline. Mucous membranes moist. Neck: Trachea midline, no thyromegaly or masses palpated, and no cervical lymphadenopathy. Supple, full range of motion without nuchal rigidity, or vertebral point tenderness. No Meningismus. Chest/axilla: Normal chest wall appearance and motion. Nontender with no deformity. No lesions are appreciated. Cardiovascular: Regular rate and rhythm with a normal S1 and S2. No gallops, murmurs, or rubs. Normal PMI, no JVD. No pulse deficits. Respiratory: Lungs have equal breath sounds bilaterally, clear to auscultation and percussion. No rales, rhonchi or wheezes noted. No increased work of breathing, no retractions or nasal flaring. Abdomen/GI: Soft, non-tender, with normal bowel sounds. No distension or tympany. No guarding or rebound. No evidence of tenderness throughout. Back: No spinal tenderness. No costovertebral tenderness. Full range of motion. Skin: Warm, dry with normal turgor. Normal color with no rashes, no lesions, and no evidence of cellulitis. MS/ Extremity: Pulses equal, no cyanosis. Neurovascular intact. Full, normal range of motion. Neuro: Awake and alert, GCS 15, oriented to person, place, time, and situation. Cranial nerves II-XII grossly intact. Motor strength 5/5 in all extremities. Sensory grossly intact. Cerebellar exam normal. Normal gait. Psych: Awake, alert, with orientation to person, place and time. Behavior, mood, and affect are within normal limits. Vital Signs: 14:08 BP 127 / 91; Pulse 100; Resp 18 S; Temp 97.9(O); Pulse Ox 100% on R/A; Weight 57.61 kg as6 (R); Height 5 ft. 3 in. (R); Pain 3/10; 16:20 BP 120 / 81; Pulse 80; Resp 18; Pulse Ox 99% on R/A; rs5 14:08 Body Mass Index 22.50 (57.61 kg, 160.02 cm) as6 14:08 Pain Scale: Adult as6 MDM: 15:01 Patient medically screened. gb1 16:24 Data reviewed: vital signs, nurses notes, lab test result(s), Beta HCG: cardiac gb1 enzymes, troponin i, CBC, electrolytes, urine drug screen, radiologic studies. 16:27 ED course: 22-year-old female here with heart palpitations that happened when gb1 she was cleaning a friend's home. She is a regular marijuana smoker but denies any other illicit drug use. She has history of chronic back pain as well. She denies any chest tightness or pain, back pain or any type of shortness of breath with her palpitations. She denies any nausea vomiting and at this time any falls or trauma. The pain cannot be recreated here and she is low risk for acute coronary syndrome. Her UDS is positive for marijuana however otherwise negative. At this time I doubt PE, ACS or pneumonia or pneumothorax. I will discharge her home with routine follow-up with her primary care doctor and explicit return precautions as discussed prior to discharge home today with her father is at the bedside.. 07/27 15:13 Order name: Basic Metabolic Panel; Complete Time: 16:23 [facility] 07/27 15:13 Order name: CBC with Diff; Complete Time: 15:58 gb1 07/27 15:13 Order name: Troponin HS; Complete Time: 16:23 gb1 07/27 15:13 Order name: Urinalysis W/Microscopic; Complete Time: 15:58 gb07/27 15:13 Order name: UDS; Complete Time: 15:58 gb07/27 15:59 Order name: Test, Urine 07/27 15:13 Order name: XRAY Chest (1 view); Complete Time: 15:58 07/27 15:13 Order name: Cardiac monitoring; Complete Time: 15:43 gb07/27 15:13 Order name: EKG - Nurse/Tech; Complete Time: 15:43 1 07/27 15:13 Order name: IV Saline Lock; Complete Time: 15:43 gb07/27 15:13 Order name: Labs collected and sent; Complete Time: 15:43 gb07/27 15:13 Order name: O2 Per Protocol; Complete Time: 15:43 1 07/27 15:13 Order name: O2 Sat Monitoring; Complete Time: 15:43 gb1 Administered Medications: No medications were administered Disposition Summary: 07/28/23 16:24 Discharge Ordered Notes: Location: Home gb1 Condition: Stable gb1 Diagnosis - Palpitations gb1 Followup: gb1 - With: Private Physician - When: As needed - Reason: Re-evaluation by your physician Discharge Instructions: - Discharge Summary Sheet gb1 - Palpitations, [id number] gb1 Forms: - Medication Reconciliation Form gb1 - Antibiotic Education gb1 - Prescription Opioid Use gb1 - Patient Portal Instructions gb1 - Leadership Thank You Letter gb1 Signatures: Dispatcher [employer] Sukhjinder Bella RN RN as6 Candace Feldman MD MD gb1 Corrections: (The following items were deleted from the chart) 15:14 15:14 Chest Single View+RAD.RAD.BRZ ordered. EDMS EDMS 15:14 15:14 Urinalysis W/Microscopic+U.LAB.BRZ ordered. EDMS EDMS 15:14 15:14 URINE DRUG SCREEN+UC.LAB.BRZ ordered. EDMS EDMS 15:59 15:59 Test, Urine+UC.LAB.BRZ ordered. EDMS EDMS
[2023-07-28 16:54] LABS: Specific Gravity < 1.005 (1.005-1.030)
[2023-07-28 17:35] VITALS: BP 127/91; TEMP 97.9; O2SAT 100
--- NOTE | 2023-07-29 14:01 | EKG ---
Test Date: 2023-07-28 Test Time: 15:41:24 Finance Attorney: SHILOH MEASUREMENT RESULTS: Intervals: Rate: 80 MS: 158 QRSD: 82 QT: 366 QTc: 422 [place]: P: 54 MS: 158 QRS: 82 T: 65 INTERPRETIVE STATEMENTS: Normal sinus rhythm Normal ECG Compared to ECG 01/27/2006 17:29:29 No significant changes Electronically Signed On 07-29-23 13:58:35 CDT by Fransico Carr
== END 2023-07-28 16:38 | disposition home or self-care (01) ==
LOC: ER 13:57
DX: R00.2 Palpitations (principal)
CPT/HCPCS: 36415; 71045; 80048; 80307; 81001; 81025; 84484; 85025; 93005; 99284

== ENCOUNTER 2024-04-03 09:11 | Emergency (ER) | payer OTHER, SELFPAY ==
--- OUTSIDE RECORDS SUMMARY | 2024-04-03 09:14 | XMS REPORT | Continuity of Care Document ---
Author Name Unknown Address [address] [facility] [place] [address] [facility] thconnect Address [address] [address] [address] [place] [address] Care Team Providers Care Estimator Paperboard Boxes Name Role Phone Patti Lazo Attending Clinician Unavailable [email or web address]_S Attending Clinician Unavaila ble [email or web address]_S Admitting Clinician Unavaila ble Payers Payer Name Policy Type Policy Number Effective Date Expirati on Date Source [employer] 53 [id number] 2022 00:00:00 [facility] Problems Condition Name Condition Details Condition Category [...] Irregular Periods Problem Active 04-10 00:00: 00 [facility] Abnormal weight gain Abnormal Weight Gain Problem Active 04-10 00:00: 00 [facility] Herpetic vulvovagin itis Herpetic Vulvovagin itis Problem Active 10-08 00:00: 00 [facility] Chlamydial infection Chlamydial Infection Problem Active 10-08 00:00: 00 [facility] 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 High 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 al Behavior Problem Active 10-01 00:00: 00 [facility] Ulceration of vulva Ulceration of Vulva Problem Active 10-01 00:00: 00 [facility] Contracept ion care education Contracept ion Care Education Problem Active 08-27 00:00: 00 [facility] Postcoital bleeding Postcoital Bleeding Problem Active 08-08 00:00: 00 [facility] Acute vaginitis Acute Vaginitis Problem Active 08-08 00:00: 00 [facility] Gynecologi c examinatio n Gynecologi c Examinatio n Problem Active 06-12 00:00: 00 [facility] [id number] Hyperphagi a Problem [facility] [id number] Moderate major depression Problem [facility] [id number] URVASHI (generaliz ed anxiety disorder) Problem [facility] Social History Social Habit Start Date Stop Date Quantity Comments Source History of Tobacco Use [facility] Sex Assigned At [facility] Smoking Status Start Date Stop Date Source Current Every Day Smoker [facility] Former Smoker 2024-04-01 00:00:00 2024-04-01 00:00:00 [facility] Medications Ordered Medication Name Filled Medication Name Start Date Stop Date Current Medication? Ordering Clinician Indication Dosage Frequency Signature (SIG) Comments Components Source Xeomin 100 unit intramuscul ar solutionInj ect 28 units by intramuscul ar route. Xeomin 100 unit intramuscul ar solutionInj ect 28 units by intramuscul ar route. 2023-03 09:07: 34 No 28unit( s) Xeomin 100 unit intramuscu lar solutionIn ject 28 units by intramuscu lar route. [facility] buspirone 5 mg tablet TAKE 1 TABLET BY MOUTH TWICE A DAY NEEDED FOR 30 DAYS buspirone 5 mg tablet TAKE 1 TABLET BY MOUTH TWICE A DAY NEEDED FOR 30 DAYS No buspirone 5 mg tablet TAKE 1 TABLET BY MOUTH TWICE A DAY NEEDED FOR 30 DAYS [facility] moxifloxaci n 0.5 % eye drops INSTILL ONE DROP INTO LEFT EYE EVERY 4 HOURS FOR 3 DAYS moxifloxaci n 0.5 % eye drops INSTILL ONE DROP INTO LEFT EYE EVERY 4 HOURS FOR 3 DAYS No moxifloxac in 0.5 % eye drops INSTILL ONE DROP INTO LEFT EYE EVERY 4 HOURS FOR 3 DAYS [facility] busPIRone HCl 10 MG busPIRone HCl 10 MG No 1{table t} BID busPIRone HCl 10 MG Vital Signs Vital Name Observation Time Observation Value Comments S ource Body Weight 2024-03-09 00:00:00 2002 [oz_av] [facility] BP Systolic 2024-03-09 00:00:00 126 mm[Hg] [facility] BMI (Body Mass Index) 2024-03-09 00:00:00 22.5 kg/m2 [facility] BP Diastolic 2024-03-09 00:00:00 76 mm[Hg] [facility] Height 2024-03-09 00:00:00 62.5 [in_i] [facility] height 2023-10-15 08:00:00 64 [in_i] [facility] weight 2023-10-15 08:00:00 120 [lb_av] [facility] bmi 2023-10-15 08:00:00 20.6 kg/m2 [facility] height 2023-09-08 12:00:00 64 [in_i] [facility] weight 2023-09-08 12:00:00 121 [lb_av] [facility] bmi 2023-09-08 12:00:00 20.77 kg/m2 [facility] BP Systolic 2023-07-15 00:00:00 128 mm[Hg] [facility] Height 2023-07-15 00:00:00 62 [in_i] [facility] BMI (Body Mass Index) 2023-07-15 00:00:00 24.1 kg/m2 [facility] Body Weight 2023-07-15 00:00:00 132 [lb_av] [facility] BP Diastolic 2023-07-15 00:00:00 72 mm[Hg] [facility] height 2023-02-19 16:20:00 64 [in_i] [facility] weight 2023-02-19 16:20:00 140 [lb_av] [facility] bmi 2023-02-19 16:20:00 24.03 kg/m2 [facility] height 2023-01-23 10:20:00 64 [in_i] [facility] weight 2023-01-23 10:20:00 141 [lb_av] [facility] temperature 2023-01-23 10:20:00 97.1 [degF] [facility] bmi 2023-01-23 10:20:00 24[facility]2 [facility]-01-23 10:20:00 99 % [facility] respiratory rate 2023-01-23 10:20:00 17 /min [facility] blood pressure systolic 2023-01-23 10:20:00 144 mm[Hg] [facility] blood pressure diastolic 2023-01-23 10:20:00 82 mm[Hg] [facility] Plan of Care Planned Activity Planned Date Details Comments Source Diagnostic Test Pending 2023-07-15 00:00:00 Ox-eye dasha IgE Ab [Units/volume] in Serum [code = 6196-0] [facility] P[facility] 2023-07-15 00:00:00 Indirect antiglobulin test.IgG specific reagent [Presence] in Serum or Plasma [code = 1005-8] [facility] Future Appointment 2024-07-15 09:15:[address], [place] [address] [facility] Encounters Start Date/Time End Date/Time Encounter Type Admission Type Attending [facility] Care Department Encounter ID Source 2024-04-02 13:59:00 [facility] [id number] [facility] 2023-02-18 14:44:00 Outpatient Patti Lazo [facility] [id number] [facility] 2023-01-23 10:24:01 Outpatient Patti Lazo [facility] [id number] [facility] 2024-04-01 00:00:00 2024-04-01 00:00:00 (TEL) [facility] [id number] [facility] 2024-03-09 00:00:00 2024-03-09 00:00:00 Brandon Seymour, MSN, INSPECTOR AIR CARRIER, STATION MECHANIC HELPER-C: [address], [address], [place] [address] , Ph. [facility], Brandon Seymour, SHRUTHI, STATION MECHANIC HELPER-C [id number] [facility] 2023-10-15 00:00:00 2023-10-15 00:00:00 OFFICE VISIT ESTAB PT LEVEL 4 [facility] [id number] [facility] 2023-09-08 00:00:00 2023-09-08 00:00:00 OFFICE VISIT ESTAB PT LEVEL 4 [facility] [id number] [facility] 2023-07-15 00:00:00 2023-07-15 00:00:00 LUCHO Saleh: [address], [place] [address] , Ph. [facility] - GC_GCBZW_La tigist Haji* [id number] [facility] 2023-02-19 00:00:00 2023-02-19 00:00:00 OFFICE VISIT ESTAB PT LEVEL 3 [facility] ST[facility] [id number] [facility] 2023-01-23 00:00:00 2023-01-23 00:00:00 OFFICE VISIT NEW PT LEVEL 3 [facility] STLMLC [id number] [facility] 2023-01-22 00:00:00 2023-01-22 00:00:00 Outpatient GC_GCBZW_Becky marroquin_[facility] [id number] [facility] Results Test Description Test Time Test Comments Results Result Co mments Source
[2024-04-03] MEDS ORDERED: PROMETHAZINE INJ 25 MG/ML AMP ONE (09:49)
[2024-04-03] MEDS ORDERED: NA CHLORIDE 0.9% 500 ML ONE (09:49)
[2024-04-03] MEDS ORDERED: MORPHINE 4 MG/ML SYR ONE (09:49)
[2024-04-03 10:13] LABS: Absolute Eosinophils 0.1 K/uL (0-0.5); Absolute Monocytes 0.5 K/uL (0.1-1.3); Absolute Neutrophil 2.9 K/uL (1.8-8.0); Basophils % 0.4 % (0-1.3); Eosinophils % 1.8 % (0-4.4); Hemoglobin 14.3 g/dL (12.0-15.0); Lymphocytes % 36.8 % (15.3-44.8); MCV 91.3 fL (80-100); MPV 8.8 fL (7.6-11.3); Monocytes % 8.3 % (3.3-12.3); Neutrophils % 52.7 % (41.7-73.7); Platelets 215 thou/uL (152-406); Red Cell Distribution Width 12.7 % (12.1-15.2)
[2024-04-03 10:21] LABS: Albumin 3.8 g/dL (3.4-5.0); Albumin/Globulin Ratio 1.3 (1.1-1.8); Anion Gap 8.3 mEq/L (5.0-15.0); Bilirubin Total 0.6 mg/dL (0.2-1.0); Globulin 2.9 g/dL (2.3-3.5); Potassium 4.3 mEq/L (3.5-5.1); Protein, Total 6.7 g/dL (6.4-8.2)
--- NOTE | 2024-04-03 11:12 | RAD REPORT ---
EXAM: CT Head Brain Wo Cont HISTORY: HEADACHE COMPARISON: 05/03/2021 TECHNIQUE: Multiple contiguous axial images were obtained for a CT of the brain without contrast. Sag ittal and coronal reformats were performed. One or more of the following dose reduction techniques were used: Automated exposure control, adjus tment of the mA and kV according to patient size, and iterative reconstruction. Unless otherwise specified, incidental findings do not require dedicated imaging follow-up. FINDINGS: No evidence of hydrocephalus, intracranial hemorrhage, or extra-axial fluid collection. The brain is normal in morphology. The calvarium is intact. The visualized paranasal sinuses and mastoid air cells are essentially clear . IMPRESSION: No evidence of acute intracranial abnormality.
--- NOTE | 2024-04-03 11:56 | ER ---
Nurse's Notes [facility] Name: Veda Kraus Age: 23 yrs Sex: Female : 2000 Arrival Date: 04/03/2024 Time: :11 Bed 4 Private MD: Patti Lazo Diagnosis: Headache Presentation: 04/03 09:34 Chief complaint: Patient states: back of her head hurts , feels like pressure, started iw yesterday . She also has episodes where half of her face goes numb and she feels disoriented, she had an episode a few years ago and had another episode a few days ago and another yesterday. Coronavirus screen: At this time, the client does not indicate any symptoms associated with coronavirus-19. Ebola Screen: No symptoms or risks identified at this time. Initial Sepsis Screen: Does the patient meet any 2 criteria? No. Patient's initial sepsis screen is negative. Does the patient have a suspected source of infection? No. Patient's initial sepsis screen is negative. Risk Assessment: Do you want to hurt yourself or someone else? Patient reports no desire to harm self or others. 09:34 Method Of Arrival: Ambulatory iw 09:34 Acuity: SHIRA 3 iw 09:45 Onset of symptoms was April 02, 2024. 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 - Infectious Disease History:: Denies. - Social history:: Smoking status: Patient denies any tobacco usage or history of. Screenin:45 [facility] ED Fall Risk Assessment (Adult) History of falling in the last 3 months, aa5 including since admission No falls in past 3 months (0 pts) Confusion or Disorientation No (0 pts) Intoxicated or Sedated No (0 pts) Impaired Gait No (0 pts) Mobility Assist Device Used No (0 pt) Altered Elimination No (0 pt) Score/Fall Risk Level 0 - 2 = Low Risk Oriented to surroundings, Maintained a safe environment, Educated pt \T\ family on fall prevention, incl call for assistance when getting out of bed. Abuse screen: Denies threats or abuse. Nutritional screening: No deficits noted. Tuberculosis screening: No symptoms or risk factors identified. Assessment: 09:45 General: Appears uncomfortable, Behavior is calm, cooperative. Pain: Complains of pain aa5 in forehead and back of head Pain currently is 6 out of 10 on a pain scale. Quality of pain is described as pressure, Pain began 1 day ago. Is continuous. Neuro: Level of Consciousness is awake, alert, obeys commands, Oriented to person, place, time, situation, Reports episodic numbness to right side of face . Cardiovascular: Patient's skin is warm and dry. Respiratory: Airway is patent Respiratory effort is even, unlabored, Respiratory pattern is regular, symmetrical. GI: Abdomen is flat, non-distended, Bowel sounds present X 4 quads. Abd is soft and non tender X 4 quads. Reports nausea, Patient currently denies vomiting. : No signs and/or symptoms were reported regarding the genitourinary system. EENT: No signs and/or symptoms were reported regarding the EENT system. Derm: Skin is pink, warm \T\ dry. Musculoskeletal: Range of motion: intact in all extremities. 10:00 Reassessment: Pt to CT scan . aa5 10:28 Reassessment: Patient is alert, oriented x 3, equal unlabored respirations, skin aa5 warm/dry/pink. Patient states feeling better. 10:28 General: Appears comfortable. aa5 12:50 Reassessment: Patient is alert, oriented x 3, equal unlabored respirations, skin aa5 warm/dry/pink. Vital Signs: 09:38 BP 130 / 80; Pulse 70; Resp 18; Temp 98.1; Pulse Ox 98% ; Weight 58.97 kg; Height 5 ft. iw 2 in. ; Pain 6/10; 12:30 BP 131 / 82; Pulse 75; Resp 16 S; Pulse Ox 100% on R/A; aa5 09:38 Body Mass Index 23.78 (58.97 kg, 157.48 cm) iw 09:38 Pain Scale: Adult iw ED Course: 09:19 Patient arrived in ED. am2 09:20 Patti Lazo is Private Physician. am2 09:26 Ugo Soto MD is Attending Physician. sp3 09:35 Marie Steele, RN is Primary Nurse. aa5 09:37 Triage completed. iw 09:38 Arm band placed on. iw 09:45 Patient has correct armband on for positive identification. Bed in low position. Call aa5 light in reach. Side rails up X2. Adult w/ patient. Pulse ox on. NIBP on. 09:58 Initial lab(s) drawn, by me, sent to lab. Inserted saline lock: 22 gauge in left aa5 antecubital area, using aseptic technique. Blood collected. Flushed with 10 mL NS. 10:16 CT Head Brain wo Cont In Process Unspecified. EDMS 10:17 No provider procedures requiring assistance completed. aa5 11:55 Aneudy Bkaer MD is Referral Physician. sp3 12:50 IV discontinued, intact, bleeding controlled, No redness/swelling at site. Pressure aa5 dressing applied. Administered Medications: 09:58 Drug: morphine IVP or IV 4 mg IVP once over 4 mins Route: IVP; Infused Over: 4 mins; aa5 Site: left antecubital; 10:28 Follow up: Response: No adverse reaction aa5 09:58 Drug: Promethazine IVP 12.5 mg IVP once Route: IVP; Site: left antecubital; aa5 10:28 Follow up: Response: No adverse reaction aa5 09:58 Drug: NS 0.9% IV 500 ml 500 ml IV at 1 bolus once; to be given as a bolus over 30 aa5 minutes Volume: 500 ml; Route: IV; Rate: 1 bolus; Site: left antecubital; 10:28 Follow up: IV Status: Completed infusion; IV Intake: 500ml aa5 Medication: 10:14 VIS not applicable for this client. aa5 Intake: 10:28 IV: 500ml; Total: 500ml. aa5 Outcome: 11:55 Discharge ordered by MD. sp3 12:50 Discharged to home ambulatory, with significant other, aa5 12:50 Condition: improved 12:50 Discharge instructions given to patient, Instructed on discharge instructions, follow up and referral plans. medication usage, Demonstrated understanding of instructions, follow-up care, medications, Prescriptions given X 1, 12:52 Patient left the ED. aa5 Signatures: Dispatcher [employer] EDMS Yaa Salcedo RN RN iw Marie Steele, RN RN aa5 Meena Fried am2 Ugo Soto MD MD sp3 Corrections: (The following items were deleted from the chart) 10:16 09:45 Pain: Complains of pain in forehead and back of head Pain currently is 6 out of aa5 10 on a pain scale. Quality of pain is described as pressure, Pain began Is continuous, aa5 14:15 11:30 BP 131 / 82; Pulse 75bpm; Resp 16bpm; Spontaneous; Pulse Ox 100% RA; aa5 aa5
--- NOTE | 2024-04-03 11:56 | EDPHYS ---
Physician Documentation [facility] Name: Veda Kraus Age: 23 yrs Sex: Female : 2000 Arrival Date: 04/03/2024 Time: 09:11 Bed 4 Private MD: Patti Lazo ED Physician Ugo Soto HPI: 04/03 09:43 This 23 yrs old Female presents to ER via Ambulatory with complaints of head pain/neck sp3 pain, Numbness Of Face - right side on and off. 09:43 23-year-old female with history of anxiety, chronic back pain now presents with sp3 multiple episodes of recurrent headaches particularly posteriorly extending to the right parietal with some facial numbness that comes and goes. Patient has had these in the distant past and then recently multiple over the last few weeks. No formal diagnosis of migraine have been made. Patient does not have a neurologist. Her PCP did schedule an MRI which she has not had a chance to obtain yet. She denies any fever, trauma, neck stiffness, chest pain, shortness of breath, abdominal pain, vomiting, diarrhea, rash, syncope, near syncope, known sick contacts, travel history, or any other signs or symptoms on ROS at this time. No family history of aneurysm or other related pathology.. 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 - Infectious Disease History:: Denies. - Social history:: Smoking status: Patient denies any tobacco usage or history of. ROS: 09:44 Constitutional: Negative for fever, chills, and weight loss, Eyes: Negative for injury, sp3 pain, redness, and discharge, ENT: Negative for injury, pain, and discharge, Neck: Negative for injury, pain, and swelling, Cardiovascular: Negative for chest pain, palpitations, and edema, Respiratory: Negative for shortness of breath, cough, wheezing, and pleuritic chest pain, Abdomen/GI: Negative for abdominal pain, nausea, vomiting, diarrhea, and constipation, Back: Negative for injury and pain, MS/Extremity: Negative for injury and deformity, Skin: Negative for injury, rash, and discoloration, Psych: Negative for depression, anxiety, suicide ideation, homicidal ideation, and hallucinations, Allergy/Immunology: Negative for hives, rash, and allergies, Endocrine: Negative for neck swelling, polydipsia, polyuria, polyphagia, and marked weight changes, Hematologic/Lymphatic: Negative for swollen nodes, abnormal bleeding, and unusual bruising, 09:44 All other systems are negative, Exam: 09:44 Constitutional: This is a well developed, well nourished patient who is awake, alert, sp3 and in no acute distress. Head/Face: Normocephalic, atraumatic. ENT: Nares patent. No nasal discharge, no septal abnormalities noted. External auditory canals are clear. Oropharynx with no redness, swelling, or masses, exudates, or evidence of obstruction, uvula midline. Mucous membranes moist. Neck: Trachea midline, no thyromegaly or masses palpated, and no cervical lymphadenopathy. Supple, full range of motion without nuchal rigidity, or vertebral point tenderness. No Meningismus. Chest/axilla: Normal chest wall appearance and motion. Nontender with no deformity. No lesions are appreciated. Cardiovascular: Regular rate and rhythm with a normal S1 and S2. No gallops, murmurs, or rubs. Normal PMI, no JVD. No pulse deficits. Respiratory: Lungs have equal breath sounds bilaterally, clear to auscultation and percussion. No rales, rhonchi or wheezes noted. No increased work of breathing, no retractions or nasal flaring. Abdomen/GI: Soft, non-tender, with normal bowel sounds. No distension or tympany. No guarding or rebound. No evidence of tenderness throughout. Back: No spinal tenderness. No costovertebral tenderness. Full range of motion. Skin: Warm, dry with normal turgor. Normal color with no rashes, no lesions, and no evidence of cellulitis. MS/ Extremity: Pulses equal, no cyanosis. Neurovascular intact. Full, normal range of motion. Neuro: Awake and alert, GCS 15, oriented to person, place, time, and situation. Cranial nerves II-XII grossly intact. Motor strength 5/5 in all extremities. Sensory grossly intact. Cerebellar exam normal. Normal gait. Psych: Awake, alert, with orientation to person, place and time. Behavior, mood, and affect are within normal limits. 09:44 Eyes: Pupils: Photophobia noted.. Vital Signs: 09:38 BP 130 / 80; Pulse 70; Resp 18; Temp 98.1; Pulse Ox 98% ; Weight 58.97 kg; Height 5 ft. iw 2 in. ; Pain 6/10; 12:30 BP 131 / 82; Pulse 75; Resp 16 S; Pulse Ox 100% on R/A; aa5 09:38 Body Mass Index 23.78 (58.97 kg, 157.48 cm) iw 09:38 Pain Scale: Adult iw MDM: 09:26 Medical Screening Exam initiated sp3 09:45 Data reviewed: vital signs, nurses notes, lab test result(s), radiologic studies. ED sp3 course: 23-year-old female with headache and photophobia. Differential diagnosis includes migraine headache, idiopathic headache, and to a lesser degree intracranial pathology including mass or bleed. I believe patient most likely has migraine headache with aura. Will treat with morphine and Phenergan. Workup will include CT scan of the head, general labs and supportive care. Disposition pending workup and patient course with probable discharge once patient is improved with follow-up to neurology with Dr. Baker and continue outpatient referral for MRI by her PCP which is already in progress.. 11:51 ED course: Workup negative including labs and CT scan. Patient feels better and we will sp3 safely discharge her home at this time.. 04/03 09:42 Order name: CBC with Diff; Complete Time: 11:50 sp3 04/03 09:42 Order name: CMP; Complete Time: 11:50 sp3 04/03 09:42 Order name: CT Head Brain wo Cont; Complete Time: 11:50 sp3 04/03 09:42 Order name: IV Saline Lock; Complete Time: 10:00 sp3 04/03 09:42 Order name: Labs collected and sent; Complete Time: 10:00 sp3 Administered Medications: 09:58 Drug: morphine IVP or IV 4 mg IVP once over 4 mins Route: IVP; Infused Over: 4 mins; aa5 Site: left antecubital; 10:28 Follow up: Response: No adverse reaction aa5 09:58 Drug: Promethazine IVP 12.5 mg IVP once Route: IVP; Site: left antecubital; aa5 10:28 Follow up: Response: No adverse reaction aa5 09:58 Drug: NS 0.9% IV 500 ml 500 ml IV at 1 bolus once; to be given as a bolus over 30 aa5 minutes Volume: 500 ml; Route: IV; Rate: 1 bolus; Site: left antecubital; 10:28 Follow up: IV Status: Completed infusion; IV Intake: 500ml aa5 Disposition Summary: 04/03/24 11:55 Discharge Ordered Notes: Location: Home sp3 Condition: Stable sp3 Diagnosis - Headache sp3 Followup: sp3 - With: Private Physician - When: Upon discharge from the Emergency Department - Reason: Continuance of care Followup: sp3 - With: Aneudy Baker MD - When: Upon discharge from the Emergency Department - Reason: Recheck today's complaints Discharge Instructions: - Discharge Summary Sheet sp3 - General Headache Without Cause sp3 Forms: - Medication Reconciliation Form sp3 - Antibiotic Education sp3 - Prescription Opioid Use sp3 - Patient Portal Instructions sp3 - Leadership Thank You Letter sp3 Prescriptions: - promethazine 25 mg Oral Tablet - take 1 tablet ORAL route every 6 hours As needed; 20 tablet; Refills: 0, sp3 Product Selection Permitted Signatures: Dispatcher [employer] Yaa Banks RN RN iw Marie Steele RN RN aa5 Ugo Soto MD MD sp3
[2024-04-06 15:18] VITALS: BP 130/80; TEMP 98.1; O2SAT 98
== END 2024-04-03 12:52 | disposition home or self-care (01) ==
LOC: ER 09:11
DX: R51.9 Headache, unspecified (principal)
CPT/HCPCS: 85025; 36415; 80053; 70450; 96375; 96374; 99284; J2550; J7040

== ENCOUNTER 2024-08-01 04:49 | Emergency (ER) | payer OTHER ==
--- OUTSIDE RECORDS SUMMARY | 2024-08-01 04:52 | XMS REPORT | Continuity of Care Document ---
Author Name Unknown Address [address] [facility] [place] [address] [facility] [place] Address [address] [facility] [place] [address] Care Team Providers Care Residential Finish Carpenter Name Role Phone Patti Lazo MD Primary Care Physician [phone] Patti Lazo Attending Clinician Unavailable MADELYN WADDELL Attending Clinician Unavailable MADELYN WADDELL Attending Clinician Unavailable Doctor Unassigned, Fitzgerald Attending Clinician U Madelyn Platt MD Attending Clinician [phone] NEREIDA LOZADA Attending Clinician Unavailable 2, [facility] Attending Clinician Unavailable Nereida Lozada DNP Attending Clinician [phone] [email or web address]_Kadiyala_S Attending Clinician Unavaila ble GC_GCBZW_Kadiyala_S Admitting Clinician Unavaila ble Payers Payer Name Policy Type Policy Number Effective Date Expirati on Date Source AET[employer] PPO [id number] 2024 00:00:00 AETNA 53 [id number] [facility] AETNA 53 [id number] 2022 00:00:00 [facility] Problems Condition Name Condition Details Condition Category Status Onset Date Resolution Date Last Treatment Date Treating Clinician Comments Source Normal in first trimester Normal in first trimester Disease Active 06-21 00:00: 00 [facility] Nausea and vomiting during prior to 22 weeks gestation Nausea and vomiting during prior to 22 weeks gestation Disease Active 06-21 00:00: 00 [facility] Vitamin D deficiency Vitamin D Deficiency Problem Active 1 00:00: 00 [facility] Anxiety Anxiety Problem Active 04-08 00:00: 00 [facility] Nightmares Nightmares Problem Active 04-08 00:00: 00 [facility] Insomnia Insomnia Problem Active 04-08 00:00: 00 [facility] Fatigue Fatigue Problem Active 04-08 00:00: 00 [facility] Paresthesi a Paresthesi a Problem Active 04-08 00:00: 00 [facility] Numbness Numbness Problem Active 04-08 00:00: 00 [facility] Abnormal flushing and sweating Abnormal Flushing and Sweating Problem Active 04-08 00:00: 00 [facility] Initiation of depot contracept ion done Initiation of Depot Contracept ion Done Problem Active 08-12 00:00: 00 [facility] Surveillan ce of subcutaneo us contracept dell implant Surveillan ce of Subcutaneo us Contracept dell Implant Problem Active 08-12 00:00: 00 [facility] Major depression , single episode Major Depression , Single Episode Problem Active 2017-03 0 00:00: 00 [facility] Gonorrhea of lower genitourin carol tract Gonorrhea of Lower Genitourin carol Tract Problem Active 10-27 00:00: 00 [facility] Counseling Counseling Problem Active 10-22 00:00: 00 [facility] Irregular periods Irregular Periods Problem Active 04-10 00:00: 00 [facility] Abnormal weight gain Abnormal Weight Gain Problem Active 04-10 00:00: 00 [facility] Herpetic vulvovagin itis Herpetic Vulvovagin itis Problem Active 10-08 00:00: 00 [facility] Chlamydial infection Chlamydial Infection Problem Active 10-08 00:00: 00 [facility] 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 High 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 al Behavior Problem Active 10-01 00:00: 00 [facility] Ulceration of vulva Ulceration of Vulva Problem Active 10-01 00:00: 00 [facility] Contracept ion care education Contracept ion Care Education Problem Active 08-27 00:00: 00 [facility] Postcoital bleeding Postcoital Bleeding Problem Active 08-08 00:00: 00 [facility] Acute vaginitis Acute Vaginitis Problem Active 08-08 00:00: 00 [facility] Gynecologi c examinatio n Gynecologi c Examinatio n Problem Active 06-12 00:00: 00 [facility] [id number] Hyperphagi a Problem [facility] [id number] Moderate major depression Problem [facility] [id number] URVASHI (generaliz ed anxiety disorder) Problem [facility] Allergies, Adverse Reactions, Alerts Allergy Name Allergy Type Status Severity Reaction(s) Onset Date Inactive Date Treating Clinician Comments Source NO KNOWN ALLERGIE S Drug Class Active [facility] Social History Social Habit Start Date Stop Date Quantity Comments Source ASSERTION 2024-05-21 00:00:00 [facility] History of Tobacco Use [facility] intake 2024-07-20 00:00:00 2024-07-20 00:00:00 Ex-drinker (finding) [facility] Tobacco use and exposure 2024-06-21 00:00:00 2024-06-21 00:00:00 Smokeless tobacco non-user [facility] History of Social function 2024-06-21 00:00:00 2024-06-21 00:00:00 [facility] Sex assigned at 2000 00:00:00 2000 00:00:00 [facility] Smoking Status Start Date Stop Date Source Former Smoker [facility] Never smoked tobacco [facility] Medications Ordered Medication Name Filled Medication Name Start Date Stop Date Current Medication? Ordering Clinician Indication Dosage Frequency Signature (SIG) Comments Components Source metoclopram orlando HCl 10 mg tablet 07-22 00:00: 00 Yes [id number] 10mg Take 1 tablet by mouth every 6 (six) hours as needed for Nausea and Vomiting (N/V). [facility] metoclopram orlando HCl 10 mg tablet 07-07 00:00: 00 07-22 00:00 :00 No [id number] 10mg Take 1 tablet by mouth every 6 (six) hours as needed for Nausea and Vomiting (N/V). [facility] Vit Comb.10-Iro n-FA 65-1 mg Tab 06-21 09:59: 53 Yes Take by mouth. [facility] pyridoxine, VITAMIN B-6, (VITAMIN B-6) 25 mg tablet 06-21 00:00: 00 Yes [id number] 25mg Take 1 tablet by mouth every 6 (six) hours as needed for Nausea and Vomiting (N/V). [facility] doxylamine (UNISOM, DOXYLAMINE, ) 25 mg tablet 06-21 00:00: 00 Yes [id number] 25mg Take 1 tablet by mouth at bedtime as needed for Nausea and Vomiting (N/V). [facility] metoclopram orlando HCl 10 mg tablet 06-21 00:00: 00 07-07 00:00 :00 No [id number] 10mg Take 1 tablet by mouth every 6 (six) hours as needed for Nausea and Vomiting (N/V). [facility] Cholecalcif alejandro, Vitamin D3, 1,250 mcg (50,000 unit) capsule 04-19 00:00: 00 Yes Take 1 capsule every week by oral route for 90 days. [facility] Xeomin 100 unit intramuscul ar solutionInj ect 28 units by intramuscul ar route. Xeomin 100 unit intramuscul ar solutionInj ect 28 units by intramuscul ar route. 2023-03 09:07: 34 No 28unit( s) Xeomin 100 unit intramuscu lar solutionIn ject 28 units by intramuscu lar route. [facility] busPIRone HCl 15 MG busPIRone HCl 15 MG No 1{table t} BID busPIRone HCl 15 MG buspirone 5 mg tablet TAKE 1 TABLET BY MOUTH TWICE A DAY NEEDED FOR 30 DAYS buspirone 5 mg tablet TAKE 1 TABLET BY MOUTH TWICE A DAY NEEDED FOR 30 DAYS No buspirone 5 mg tablet TAKE 1 TABLET BY MOUTH TWICE A DAY NEEDED FOR [address] [facility] moxifloxaci n 0.5 % eye drops INSTILL ONE DROP INTO LEFT EYE EVERY 4 HOURS FOR 3 DAYS moxifloxaci n 0.5 % eye drops INSTILL ONE DROP INTO LEFT EYE EVERY 4 HOURS FOR 3 DAYS No moxifloxac in 0.5 % eye drops INSTILL ONE DROP INTO LEFT EYE EVERY 4 [address] [facility] Vital Signs Vital Name Observation Time Observation Value Comments S ource Systolic blood pressure 2024-07-20 13:43:00 120 mm[Hg] [facility] Diastolic blood pressure 2024-07-20 13:43:00 73 mm[Hg] [facility] Heart rate 2024-07-20 13:43:00 91 /min [facility] Body temperature 2024-07-20 13:43:00 36.67 Roxei [facility] Body height 2024-07-20 13:43:00 157.5 cm [facility] Body weight 2024-07-20 13:43:00 63.05 kg [facility] BMI 2024-07-20 13:43:00 25.42 kg/m2 [facility] Systolic blood pressure 2024-06-21 14:57:00 112 mm[Hg] [facility] Diastolic blood pressure 2024-06-21 14:57:00 70 mm[Hg] [facility] Heart rate 2024-06-21 14:57:00 90 /min [facility] Body temperature 2024-06-21 14:57:00 36.78 Roxie [facility] Respiratory rate 2024-06-21 14:57:00 18 /min [facility] Body height 2024-06-21 14:57:00 157.5 cm [facility] Body weight 2024-06-21 14:57:00 62.324 kg [facility] BMI 2024-06-21 14:57:00 25.13 kg/m2 [facility] BP Diastolic 2024-04-08 00:00:00 81 mm[Hg] [facility] BP Systolic 2024-04-08 00:00:00 122 mm[Hg] [facility] Body Weight 2024-04-08 00:00:00 129.4 [lb_av] [facility] Height 2024-04-08 00:00:00 62 [in_i] [facility] BMI (Body Mass Index) 2024-04-08 00:00:00 23.7 kg/m2 [facility] height 2024-04-02 14:00:00 64 [in_i] [facility] weight 2024-04-02 14:00:00 129 [lb_av] [facility] temperature 2024-04-02 14:00:00 97.3 [degF] Com mon [facility] bmi 2024-04-02 14:00:00 22.14 kg/m2 [facility] oximetry 2024-04-02 14:00:00 99 % [facility] respiratory rate 2024-04-02 14:00:00 16 /min [facility] blood pressure systolic 2024-04-02 14:00:00 124 mm[Hg] [facility] blood pressure diastolic 2024-04-02 14:00:00 70 mm[Hg] [facility] BMI (Body Mass Index) 2024-03-09 00:00:00 22.5 kg/m2 [facility] BP Diastolic 2024-03-09 00:00:00 76 mm[Hg] [facility] Height 2024-03-09 00:00:00 62.5 [in_i] [facility] Body Weight 2024-03-09 00:00:00 2002 [oz_av] [facility] BP Systolic 2024-03-09 00:00:00 126 mm[Hg] [facility] height 2023-10-15 08:00:00 64 [in_i] [facility] weight 2023-10-15 08:00:00 120 [lb_av] [facility] bmi 2023-10-15 08:00:00 20.6 kg/m2 [facility] height 2023-09-08 12:00:00 64 [in_i] [facility] weight 2023-09-08 12:00:00 121 [lb_av] [facility] bmi 2023-09-08 12:00:00 20.77 kg/m2 [facility] BP Systolic 2023-07-15 00:00:00 128 mm[Hg] [facility] Height 2023-07-15 00:00:00 62 [in_i] [facility] BMI (Body Mass Index) 2023-07-15 00:00:00 24.1 kg/m2 [facility] Body Weight 2023-07-15 00:00:00 132 [lb_av] [facility] BP Diastolic 2023-07-15 00:00:00 72 mm[Hg] [facility] height 2023-02-19 16:20:00 64 [in_i] [facility] weight 2023-02-19 16:20:00 140 [lb_av] [facility] bmi 2023-02-19 16:20:00 24.03 kg/m2 [facility] height 2023-01-23 10:20:00 64 [in_i] [facility] weight 2023-01-23 10:20:00 141 [lb_av] [facility] temperature 2023-01-23 10:20:00 97.1 [degF] Com mon [facility] bmi 2023-01-23 10:20:00 24.2 kg/m2 [facility] oximetry 2023-01-23 10:20:00 99 % [facility] respiratory rate 2023-01-23 10:20:00 17 /min [facility] blood pressure systolic 2023-01-23 10:20:00 144 mm[Hg] [facility] blood pressure diastolic 2023-01-23 10:20:00 82 mm[Hg] [facility] Procedures Procedure Date / Time Performed Performing Clinician Source SCANNED LAB RESULTS 2024-07-30 16:28:37 Doctor U pankaj, Fitzgerald [facility] SCANNED LAB RESULTS 2024-07-30 16:28:35 Doctor U pankaj, Fitzgerald [facility] SCANNED LAB RESULTS 2024-07-29 19:01:11 Doctor Ryan lira, Fitzgerald [facility] <14 WEEKS US LIMITED 2024-07-20 14:58:03 Nereida Lozada [facility] POCT URINALYSIS W/O SPECIFIC GRAVITY 2024-07-20 00:00:00 Nereida Lozada [facility] FIRE [facility] ULTRASOUND 2024-06-22 16:08:22 Doctor Unassigned, Fitzgerald [facility] OB TRANSVAGINAL 2024-06-21 15:57:55 Madelyn Waddell U [facility] POCT URINALYSIS W/O SPECIFIC GRAVITY 2024-06-21 15:03:00 Madelyn Waddell [facility] POCT TEST 2024-06-21 15:02:00 Madelyn Waddell [facility] Encounters Start Date/Time End Date/Time Encounter Type Admission Type Attending Clinicians Care Facility Care Department Encounter ID Source 2024-04-02 13:59:[address] [facility] [id number] [facility] 2023-02-18 14:44:[address] [facility] [id number] [facility] 2023-01-23 10:24:[address] [facility] [id number] [facility] 2024-08-18 09:00:00 2024-08-18 09:00:00 Outpatient MADELYN LOVETT VIEN [facility] [id number] [facility] 2024-07-29 00:00:00 2024-07-31 02:04:21 Orders Only Doctor Unassigned, Fitzgerald Doctor Unassigned, Fitzgerald [facility] 1.2.840.114 350.1.13.10 4.2.7.2.686 [id number] [facility] 2024-07-30 00:00:00 2024-07-31 02:04:14 Orders Only Doctor Unassigned, Fitzgerald Doctor Unassigned, Fitzgerald [facility] ([place]) 1.2.840.114 350.1.13.10 4.2.7.2.686 [id number] [facility] 2024-07-30 00:00:00 2024-07-31 02:04:07 Orders Only Doctor Unassigned, Fitzgerald Doctor Unassigned, Fitzgerald [facility] ([place]) 1.2.840.114 350.1.13.10 4.2.7.2.686 [id number] [id number] [facility] 2024-07-29 00:00:00 2024-07-29 10:42:13 Telephone Madelyn Waddell [facility] BUILDING 1.2.840.114 350.1.13.10 4.2.7.2.686 [id number] [facility] 2024-07-26 00:00:00 2024-07-26 15:09:06 Telephone Madelyn Waddell [facility] 1.2.840.114 350.1.13.10 4.2.7.2.686 [id number] [facility] 2024-07-23 00:00:00 2024-07-23 13:15:30 Telephone Madelyn Waddell [facility] 1.2.114 350.1.13.10 4.2.7.2.686 [id number] [facility] 2024-07-22 00:00:00 2024-07-22 17:32:53 Refill Madelyn Waddell [facility] 1.2840.114 350.1.13.10 4.2.7.2.686 [id number] 134 [id number] [facility] 2024-07-20 09:45:00 2024-07-20 09:45:00 Destination Coordinator Visit 2, [facility] Nereida Lozada 2, [facility] 1.284.114 350.1.13.10 4.2.7.2.686 [id number] [facility] 2024-07-20 08:45:00 2024-07-20 09:02:00 Outpatient R NEREIDA LOZADA [facility] [id number] [facility] 2024-07-20 08:45:00 2024-07-20 09:02:00 Routine Visit Nereida Lozada [facility] 1.284.114 350.1.13.10 4.2.7.2.686 [id number] 134 [id number] [facility] 2024-07-07 00:00:00 2024-07-07 11:59:25 Telephone Madelyn Waddell [facility] 1.2.114 350.1.13.10 4.2.7.2.686 [id number] [facility] 2024-06-22 00:00:00 2024-06-23 02:04:42 Orders Only Doctor Unassigned, Fitzgerald Doctor Unassigned, Fitzgerald [facility] 1..840.114 350.1.13.10 4.2.7.2.686 [id number] [id number] [facility] 2024-06-21 10:00:00 2024-06-21 10:30:26 [facility] Visit [facility]add[facility] 1.2.840.114 350.1.13.10 4.2.7.2.686 [id number] [facility] 2024-06-21 10:00:00 2024-06-21 10:30:26 Outpatient R MADELYN WADDELL MADELYN [facility] [id number] [facility] 2024-06-18 14:00:00 2024-06-18 14:00:00 Outpatient R MADELYN WADDELL [facility] [id number] [facility] 2024-04-29 00:00:00 2024-04-29 00:00:00 (TEL) [facility] STLC [id number] [facility] 2024-04-19 00:00:00 2024-04-19 00:00:00 CARLOS ALBERTO Tam: [address], [place] [address] , Ph. [facility] - GC_GCBZW_Marce Haji* [id number] [facility] 2024-04-19 00:00:00 2024-04-19 00:00:00 (TEL) [facility] STLC [id number] [facility] 2024-04-08 00:00:00 2024-04-08 00:00:00 CARLOS ALBERTO Tam: [address], [place] [address] , Ph. [facility] - GC_GCBZW_Marce Haji* [id number] [facility] 2024-04-02 00:00:00 2024-04-02 00:00:00 (WELLNESS) Wellness Visit STLMLC STLMLC [id number] [facility] 2024-04-01 00:00:00 2024-04-01 00:00:00 (TEL) STLMLC STLMLC [id number] [facility] 2024-03-09 00:00:00 2024-03-09 00:00:00 Brandon Seymour, MSN, BARREL WASHER, ADMINISTRATIVE SERVICES DIRECTOR-C: [address], [address], [place] [address] , Ph. [facility], Barndon Seymour, MSN, ADMINISTRATIVE SERVICES DIRECTOR-C [facility] 2023-10-15 00:00:00 2023-10-15 00:00:00 OFFICE VISIT ESTAB PT LEVEL 4 STLMLC STLMLC [id number] [facility] 2023-09-08 00:00:00 2023-09-08 00:00:00 OFFICE VISIT ESTAB PT LEVEL 4 STLMLC STLMLC [id number] [facility] 2023-07-15 00:00:00 2023-07-15 00:00:00 LUCHO Saleh: [address], [address], [place] [address] , Ph. [facility] - GC_GCBZW_[facility]* [id number] [facility] 2023-02-19 00:00:00 2023-02-19 00:00:00 OFFICE VISIT ESTAB PT LEVEL 3 STLMLC STLMLC [id number] [facility] 2023-01-23 00:00:00 2023-01-23 00:00:00 OFFICE VISIT NEW PT LEVEL 3 STLMLC STLMLC [id number] [facility] 2023-01-22 00:00:00 2023-01-22 00:00:00 Outpatient GC_GCBZW_Ka dimaria dolores_S PRIV PRIV [id number] [facility] Results Test Description Test Time Test Comments Results Resul t Comments Source SCANNED LAB RESULTS 2024-07-30 16:28:37 Ordered by an unspecified provider. [facility] SCANNED LAB RESULTS 2024-07-30 16:28:35 Ordered by an unspecified provider. [facility] SCANNED LAB RESULTS 2024-07-29 19:01:11 Ordered by an unspecified provider. [facility] [id number] 16:08:22 Ordered by an unspecified provider[facility] [id number] 15:03:00* Test Item Value Reference Range Interpretation Comme nts POCT PREG (test code = 1605) Positive On board controls acceptable with C Line (test code = 3574) Yes POCT PREG LOT # (test code = 3575) POCT PREG TEST DATE ( test code = 3576) [facility] Ur[facility] w/o Specific [id number] 15:03:00* Test Item Value Reference Range Interpretation Comme nts POCT PH U (test code = 3254) na 5-8 POCT U LEUK EST (test code = 3263) na Negative - N egative POCT U NIT (test code = 3262) na Negative - Negati ve POCT U PROT (test code = 3259) neg Negative - Negat dell POCT U GLU (test code = 3256) neg Negative - Negati ve POCT U KETONE (test code = 3258) na Negative - Neg ative POCT U BLD (test code = 3257) na Negative - Negati ve [facility] free and total panel [Mass/volume] - Serum or [id number] 00:00:00* Test Item Value Reference Range Interpretation Comme nts free testosterone (test code = free testosterone) 0.61 NG/dL 0.12-0.64 sex hormone binding globulin (test code = sex hormone binding globulin) 50.60 nmol/L 10.00-57.00 testosterone (test code = testosterone) 44.5 NG/dL 8.4-48.1 [facility] Medical[facility] [Units/volume] in Serum or [id number] 00:00:00* Test Item Value Reference Range Interpretation Comme nts TSH (test code = TSH) 2.270 uIU/mL 0.500-4.530 [facility] Free [Mass/volume] in Serum or Plasma 2024-04-15 00:00:00* Test Item Value Reference Range Interpretation Comme nts free T3 (test code = free T3) 3.5 pg/mL 2.0-4.7 [facility] [Units/volume] in Serum or [id number] 00:00:00* Test Item Value Reference Range Interpretation Comme nts FSH (test code = FSH) 4.8 mIU/mL [facility] MedicalComprehensive metabolic 2000 panel - Serum or [id number] 00:00:00* Test Item Value Reference Range Interpretation Comme nts sodium (test code = sodium) 137 mmol/L 136-145 potassium (test code = potassium) 4.7 mmol/L 3.5-5.5 chloride (test code = chloride) 102 mmol/L 98-107 CO2 (test code = CO2) 27 mmol/ L 23-31 glucose (test code = glucose) 94 mg/dL 70-99 BUN (test code = BUN) 10 mg/dL 6-20 creatinine (test code = creatinine) 0.7 mg/dL 0.5-0.9 calcium (test code = calcium) 9.7 mg/dL 8.5-10.5 total protein (test code = total protein) 7.0 g/dL 6.0-8.3 albumin (test code = albumin) 4.6 g/dL 3.5-5.2 total bilirubin (test code = total bilirubin) 0.6 mg/dL 0.0-1.2 alkaline phosphatase (test code = alkaline phosphatase) 50 U/L 44-147 AST (SGOT) (test code = AST (SGOT)) 20 U/L 0-32 ALT (SGPT) (test code = ALT (SGPT)) 22 U/L 0-33 globulin (test code = globulin) 2.4 g/dL 1.7-3.7 A/G ratio (test code = A/G ratio) 1.9 calc. 1.1-2.9 BUN/creatinine ratio (test code = BUN/creatinine ratio) 14.3 calc 10.0-28.0 eGFR (test code = eGFR) 123.011 mL/min/1.73A? >60.000 [facility]) [Mass/volume] in Serum or [id number] 00:00:00 * Test Item Value Reference Range Interpretation Comme nts estradiol (test code = estradiol) 143.0 pg/mL 6.1-91.9 H [facility] CenterXezlrgx81-Atlecqyueiidav D3+25-Hydroxyvitamin D2 [Mass/volume] in Serum or [id number] 00:00:00* Test Item Value Reference Range Interpretation Comme nts vitamin D III (test code = v itamin D III) 19.5 NG/mL 32.0-100.0 L [facility] Center[facility] 1996 panel - Serum or [id number] 00:00:00* Test Item Value Reference Range Interpretation Comme nts cholesterol (test code = cholesterol) 189 mg/dL 0-200 triglycerides (test code = triglycerides) 51 mg/dL 10-150 HDL cholesterol (test code = HDL cholesterol) 74 mg/dL >50 HDL risk factor (test code = HDL risk factor) 2.6 calc. VLDL cholesterol (test code = VLDL cholesterol) 10 calc dldl (test code = dldl) 104 mg/dL <100 H [facility] CenterDehydroepiandrosterone sulfate (DHEA-S) [Mass/volume] in Serum or [id number] 00:00:00* Test Item Value Reference Range Interpretation Comme [facility] DHEA-S (test code = DHEA-S) 384.0 ug/dL 98.8-340.0 H [facility] CenterCB W Auto Differential panel - [id number] 00:00:00* Test Item Value Reference Range Interpretation Comme nts WBC (test code = WBC) 5.0 10 3.7-12.0 RBC (test code = RBC) 4.46 10 3.60-5.50 HGB (test code = HGB) 13.7 g/dL 11.5-15.6 HCT (test code = HCT) 42.8 % 34.5-46.5 MCV (test code = MCV) 95.9 um 80.0-102.0 MCH (test code = MCH) 30.7 pg 25.0-34.1 MCHC (test code = MCHC) 32.0 g/dL 29.0-35.0 RDW (test code = RDW) 14.1 % 10.9-16.9 plt (test code = plt) 240 10 136-392 MPV (test code = MPV) 9.0 um 7.4-11.1 gran % (test code = gran %) 56.6 % 36.0-78.0 lymph % (test code = lymph %) 34.9 % 12.0-48.0 mono % (test code = mono %) 6.4 % 0.0-13.0 eos % (test code = eos %) 1 % 0-8 baso % (test code = baso %) 1 % 0-2 gran # (test code = gran #) 2.8 10 1.2-6.8 lymph # (test code = lymph #) 1.7 10 1.2-3.2 mono # (test code = mono #) 0.3 10 0.3-0.8 eos # (test code = eos #) 0.1 10 0.0-0.4 baso # (test code = baso #) 0.1 10 0.0-0.[address] [facility] W/AUTO [id number] 00:00:00* Test Item Value Reference Range Interpretation Comme nts NUCLEATED RBCS (test code = 05981-7) 0.0 /100 WBC'S See_Comment [Automated messa ge] The system which generated this result transmitted reference range: 0.0 /100 WBC'S. The reference range was not used to interpret this result as normal/abnormal. ABSOLUTE EOSINOPHILS (test code = 00859-8) 0.06 K/UL See_Comment [Automated messa ge] The system which generated this result transmitted reference range: 0.00-0.50 K/UL. The reference range was not used to interpret this result as normal/abnormal. ABSOLUTE LYMPHOCYTES (test code = 52573-3) 2.94 K/UL See_Comment [Automated messa ge] The system which generated this result transmitted reference range: 1.00-4.00 K/UL. The reference range was not used to interpret this result as normal/abnormal. ABSOLUTE MONOCYTES (test code = 53887-1) 0.61 K/UL See_Comment [Automated messa ge] The system which generated this result transmitted reference range: 0.20-1.00 K/UL. The reference range was not used to interpret this result as normal/abnormal. ABSOLUTE NEUTROPHILS (test code = 94981-3) 5.16 K/UL See_Comment [Automated messa ge] The system which generated this result transmitted reference range: 1.50-7.50 K/UL. The reference range was not used to interpret this result as normal/abnormal. BASOPHILS (test code = 83479-6) 0.3 % EOSINOPHILS (test code = 06703-3) 0.7 % HEMATOCRIT (test code = 26268-4) 40.3 % See_Comment [Automated messa ge] The system which generated this result transmitted reference range: 34.0-45.0 %. The reference range was not used to interpret this result as normal/abnormal. HEMOGLOBIN (test code = 718-7) 13.6 G/DL See_Comment [Automated messa ge] The system which generated this result transmitted reference range: 11.5-15.5 G/DL. The reference range was not used to interpret this result as normal/abnormal. LYMPHOCYTES (test code = 59497-1) 33.4 % MCH (test code = 08751-4) 30.5 PG See_Comment [Automated messa ge] The system which generated this result transmitted reference range: 25.0-33.0 PG. The reference range was not used to interpret this result as normal/abnormal. MCHC (test code = 02743-3) 33.7 G/DL See_Comment [Automated messa ge] The system which generated this result transmitted reference range: 31.0-36.0 G/DL. The reference range was not used to interpret this result as normal/abnormal. MCV (test code = 45984-0) 90.4 fL See_Comment [Automated messa ge] The system which generated this result transmitted reference range: 80.0-99.0 fL. The reference range was not used to interpret this result as normal/abnormal. MONOCYTES (test code = 75513-3) 6.9 % NEUTROPHILS (test code = 37745-6) 58.6 % PLATELET COUNT (test code = 71348-1) 262 K/UL See_Comment [Automated messa ge] The system which generated this result transmitted reference range: 130-400 K/UL. The reference range was not used to interpret this result as normal/abnormal. RBC (test code = 25670-5) 4.46 M/UL See_Comment [Automated messa ge] The system which generated this result transmitted reference range: 3.80-5.40 M/UL. The reference range was not used to interpret this result as normal/abnormal. RDW (test code = 70769-0) 11.6 % See_Comment [Automated messa ge] The system which generated this result transmitted reference range: 11.5-15.0 %. The reference range was not used to interpret this result as normal/abnormal. WBC (test code = 11930-1) 8.8 K/UL See_Comment [Automated messa ge] The system which generated this result transmitted reference range: 3.5-11.0 K/UL. The reference range was not used to interpret this result as normal/abnormal. Notes Date/Time Note Provider Source 2024-07-29 10:54:36 Received Horizon results via fax. Stamped and will be scanned/uploaded into pt's chart. MAXINE WATTS RN 07/29/2024 10:54 AM Maxine Watts RN [facility] 2024-07-29 10:41:41 Received Panorama results via fax. Stamped and will be scanned/uploaded into pt's chart. Pt viewed Anitra results via website. MAXINE WATTS RN 07/29/2024 10:42 AM Maxine Watts RN [facility] 2024-07-26 15:05:15 Spoke with patient, name and verified. Patient informed of VZV NI and verbalized understanding. Patient also requested Anitra results. Patient informed baby came back in the low risk category. Patient did not want to know gender. Chiqui Abdul MA [facility] 2024-07-26 13:23:26 Mely Kraus is a 23 year old female patient returned call to discuss results. Would like a call back. Ambika Dubon [facility] 2024-07-23 13:14:42 Spoke with patient and gave recommendations per the safe OTC medication list for women. Patient verbalized understanding. Meena Antonio RN [facility] 2024-07-23 12:20:51 Mely Kraus is a 23 year old female Patient states medication will not be ready until after 3pm and she still feeling very nauseated would like to know if she can use anything over the counter. Allyssa Flores [facility] 2024-07-22 15:59:53 Spoke with patient, name and verified. Patient states she takes her Metoclopramide along with the vitamin B6 every 6 hours everyday. Patient denies vomiting. Informed patient I will confirm with Dr. Waddell and if I need anything else I will give her call. [facility] 2024-07-22 13:37:32 Images from the original note were not included. Mely Kraus is a 23 year old female Pt requesting refill of medicine below. Says she has used her refill as well. Thank you [facility]/pharmacy #[id number] [place], [place] - [address] AT [facility] Tiffanie Bailey [facility] 2024-07-20 09:45:00 Images from the original note were not included. Venipuncture collection performed by clean technique on the right anticubitus. Total of 1 attempts were made. Slight pressure and a bandage/dressing were applied to the site(s). The patient experienced no complications. The following specimens were processed according to instructions and sent to [facility] laboratories per lab order on 07/20/2024: LT BLUE SST 2 RED 1 LAV 2 PPT DK GREEN (LiHep) DK GREEN (SodH) ALANIZ DK BLUE (K2) DK BLUE (S) ACD Blood Culture NIPT/NTD Pt wanted to wait for GTT & UX. Anitra Kit collected. Gisela Chandler 07/20/2024 9:46 AM [facility] 2024-07-20 08:45:00 Age: [age] year old GA: 10w4d PLAN 1. Normal in first trimester (Primary) 2. 10 weeks gestation of - POCT Urinalysis w/o Specific [place]- negative protein and glucose - OB Ultrasound Transabdominal, Limited (<14 wks)- 155 BPM 3. Nausea and vomiting during prior to 22 weeks gestation Continue to avoid triggers and take medication as prescribed F/u with Dr. Waddell in 4 weeks or prn Nereida Lozada DNP, [employer]-BC 07/20/2024 at 9:59 AM [facility] 2024-07-07 11:58:13 Refill sent. Yfn Modi RN 07/07/2024 11:58 AM T [email or web address] 2024-07-07 11:45:59 Images from the original note were not included. Mely Kraus is a 23 year old female Pt calling to request a refill of the medication below. Pt would like it sent to the [facility] in [place] instead of the [place] location. Thank you Tiffanie Bailey [email or web address] 2024-06-21 10:00:00 Age: [age] year old GA: 6w3d FOB: Wily Nausea/vomiting -Discussed avoid triggers -Vitamin B6/Unisom/Reglan as needed Vaginal discharge -GC/CT and vaginal pathogen collected Transvaginal USG for FHT: Single live IUP measured 6 3/7 weeks, not consistent with LMP. Will date by this ultrasound unless clinically indicated otherwise New OB labs today. No complaints. Discussed do's and don'ts of , safe foods, safe medications. Reviewed Zika virus precautions. I discussed the call schedule and that I might not be the physician delivering her. I discussed I deliver my patients at [facility]. Expectations for weight gain this include 25-35 pounds. Encouraged to call if have any additional questions or concerns. Discussed aneuploidy and carrier screening; patient opts for panorama and Horizon. Discussed with patient that she can have HEALTHY support with her during her delivery (which is subject to change) Declined flu vaccines Follow-up in 4 weeks for visit with COMMUNITY OUTREACH DIRECTOR Follow-up in 8 weeks for visit with [facility]
[2024-08-01] MEDS ORDERED: NA CHLORIDE 0.9% 1,000 ML ONE (05:36)
[2024-08-01 05:37] LABS: Absolute Eosinophils 0.1 K/uL (0-0.5); Absolute Lymphocytes (CBC) 2.2 K/uL (0.7-4.9); Absolute Monocytes 0.6 K/uL (0.1-1.3); Absolute Neutrophil 5.7 K/uL (1.8-8.0); Basophils % 0.3 % (0-1.3); Hematocrit 38.1 % (36.0-45.0); Hemoglobin 13.1 g/dL (12.0-15.0); Lymphocytes % 25.9 % (15.3-44.8); MCH 30.8 pg (27.0-35.0); MCHC 34.5 g/dL (32.0-36.0); MCV 89.4 fL (80-100); MPV 8.5 fL (7.6-11.3); Monocytes % 6.5 % (3.3-12.3); Neutrophils % 66.3 % (41.7-73.7); Platelets 197 thou/uL (152-406); RBC Red Blood Cell Count 4.26 M/uL (3.86-4.86); Red Cell Distribution Width 12.8 % (12.1-15.2)
[2024-08-01 06:12] LABS: Specific Gravity 1.031 (1.005-1.030)
[2024-08-01 06:34] LABS: Anion Gap 8.7 mEq/L (5.0-15.0); Potassium 3.7 mEq/L (3.5-5.1)
--- NOTE | 2024-08-01 06:40 | EDPHYS ---
Physician Documentation [facility] Name: Veda Kraus Age: 23 yrs Sex: Female : 2000 Arrival Date: 08/01/2024 Time: 04:49 Bed 16 Private MD: ED Physician Alberto Villalobos HPI: 08/01 05:09 This 23 yrs old Female presents to ER via Unassigned with complaints of raymundo Abdominal Cramping, 12 weeks and 1 day preg. no bleeding cramping for 3 hours. 05:09 The patient presents to the emergency department with abdominal pain, that started raymundo yesterday. The estimated gestational age is 12 weeks. course: care: private OB physician, Dr. negro. The patient has not experienced similar symptoms in the past. 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 - Infectious Disease History:: Denies. - Family history:: not pertinent. - Social history:: Smoking status: Patient denies any tobacco usage or history of. ROS: 05:15 Constitutional: Negative for fever, chills, and weight loss, Eyes: Negative for injury, raymundo pain, redness, and discharge, ENT: Negative for injury, pain, and discharge, Neck: Negative for injury, pain, and swelling, Cardiovascular: Negative for chest pain, palpitations, and edema, Respiratory: Negative for shortness of breath, cough, wheezing, and pleuritic chest pain, Back: Negative for injury and pain, : Negative for injury, bleeding, discharge, and swelling, MS/Extremity: Negative for injury and deformity, Neuro: Negative for headache, weakness, numbness, tingling, and seizure, Psych: Negative for depression, anxiety, suicide ideation, homicidal ideation, and hallucinations, Allergy/Immunology: Negative for hives, rash, and allergies, Endocrine: Negative for neck swelling, polydipsia, polyuria, polyphagia, and marked weight changes, 05:15 Abdomen/GI: Positive for abdominal pain, nausea, of the suprapubic area and left lower quadrant, Exam: 05:15 Constitutional: This is a well developed, well nourished patient who is awake, alert, raymundo and in no acute distress. Head/Face: Normocephalic, atraumatic. Eyes: Pupils equal round and reactive to light, extra-ocular motions intact. Lids and lashes normal. Conjunctiva and sclera are non-icteric and not injected. Cornea within normal limits. Periorbital areas with no swelling, redness, or edema. ENT: Nares patent. No nasal discharge, no septal abnormalities noted. Tympanic membranes are normal and external auditory canals are clear. Oropharynx with no redness, swelling, or masses, exudates, or evidence of obstruction, uvula midline. Mucous membranes moist. Neck: Trachea midline, no thyromegaly or masses palpated, and no cervical lymphadenopathy. Supple, full range of motion without nuchal rigidity, or vertebral point tenderness. No Meningismus. Chest/axilla: Normal chest wall appearance and motion. Nontender with no deformity. No lesions are appreciated. Cardiovascular: Regular rate and rhythm with a normal S1 and S2. No gallops, murmurs, or rubs. Normal PMI, no JVD. No pulse deficits. Respiratory: Lungs have equal breath sounds bilaterally, clear to auscultation and percussion. No rales, rhonchi or wheezes noted. No increased work of breathing, no retractions or nasal flaring. Back: No spinal tenderness. No costovertebral tenderness. Full range of motion. Skin: Warm, dry with normal turgor. Normal color with no rashes, no lesions, and no evidence of cellulitis. MS/ Extremity: Pulses equal, no cyanosis. Neurovascular intact. Full, normal range of motion., bilateral aka Neuro: Awake and alert, GCS 15, oriented to person, place, time, and situation. Cranial nerves II-XII grossly intact. Motor strength 5/5 in all extremities. Sensory grossly intact. Cerebellar exam normal. Normal gait. Psych: Awake, alert, with orientation to person, place and time. Behavior, mood, and affect are within normal limits. 05:15 Abdomen/GI: Inspection: abdomen appears normal, Bowel sounds: normal, Palpation: moderate abdominal tenderness, in the left lower quadrant, Liver: no appreciated palpable abnormalities, Hernia: not appreciated, Vital Signs: 05:22 BP 136 / 89; Pulse 83; Resp 18; Temp 98.3(O); Pulse Ox 100% on R/A; Weight 65.77 kg; kd3 Height 5 ft. 2 in. ; 06:20 BP 117 / 70; Pulse 70; Resp 16; Pulse Ox 100% ; kd3 05:22 Body Mass Index 26.52 (65.77 kg, 157.48 cm) kd3 MDM: 04:56 Medical Screening Exam initiated raymundo 05:20 Data reviewed: vital signs, nurses notes, radiologic studies, ultrasound. I considered raymundo the following discharge prescriptions or medication management in the emergency department Medications were administered in the Emergency Department. See MAR. Test considered but Not performed: MRI: no mri. Historians other than the Patient: Spouse/Significant Other: so and pt. Care significantly affected by the following chronic conditions: none. 08/01 05:04 Order name: Abo/rh Typing; Complete Time: 06:[address] [facility] 08/01 05:04 Order name: Basic Metabolic Panel; Complete Time: 06:[address] [facility] 08/01 05:04 Order name: CBC with Diff; Complete Time: 06:[address] [facility] 08/01 05:04 Order name: Test, Urine; Complete Time: 06:[address] [facility] 08/01 05:04 Order name: Quantitative Hcg; Complete Time: 06:[address] [facility] 08/01 06:34 Order name: UA Rfx Shyam Cult if indicated; Complete Time: 07:[address] [facility] 08/01 05:04 Order name: US Transvaginal Ob [facility] 08/01 05:04 Order name: IV Saline Lock; Complete Time: 05:[address] [facility] 08/01 05:04 Order name: Labs collected and sent; Complete Time: 05:[address] [facility] 08/01 05:04 Order name: NPO; Complete Time: 05:[address] [facility] Administered Medications: 05:39 Drug: NS 0.9% IV 1000 ml IV at 1000 ml once; to be given as a bolus over 60 minutes 3 Route: IV; Rate: 1000 ml; Site: left antecubital; 07:08 Follow up: Response: No adverse reaction; IV Status: Completed infusion; IV Intake: kc6 1000ml 07:27 Drug: Rocephin IV 1 grams IV at per protocol once; Given slow IV push per pharmacy kc6 instructions Route: IV; Rate: per protocol; Site: right antecubital; Disposition Summary: 08/01/24 06:39 Discharge Ordered Notes: Location: Home raymundo Problem: new raymundo Symptoms: have improved raymundo Condition: Stable raymundo Diagnosis - 12 weeks gestation of raymundo - Abdominal tenderness raymundo - UTI/ Urinary tract infection, site not specified raymundo Followup: raymundo - With: Private Physician - When: 1 - 2 days - Reason: Recheck today's complaints, Re-evaluation by your physician Discharge Instructions: - Discharge Summary Sheet raymundo - Abdominal Pain, Adult raymundo - Care raymundo - Urinary Tract Infection, Adult raymundo - Abdominal Pain, Adult, [id number] raymundo Forms: - Medication Reconciliation Form raymundo - Antibiotic Education raymundo - Prescription Opioid Use raymundo - Patient Portal Instructions raymundo - Leadership Thank You Letter [facility] Prescriptions: - Macrobid 100 mg Oral Capsule - take 1 capsule ORAL route every 12 hours for 7 days; 14 capsule; Refills: 0, raymundo Product Selection Permitted Signatures: Dispatcher [employer] EDAlberto Quesada MD MD cha Doucette, Kyli, RN RN kd3 Paloma Mary RN RN kc6 Corrections: (The following items were deleted from the chart) 05:04 05:04 ABO/RH TYPING+BB.LAB.BRZ ordered. EDMS EDMS 05:04 05:04 BASIC METABOLIC PANEL+C.LAB.BRZ ordered. EDMS EDMS 05:04 05:04 CBC+H.LAB.BRZ ordered. EDMS EDMS 05:04 05:04 Test, Urine+UC.LAB.BRZ ordered. EDMS EDMS 05:04 05:04 QUANTITATIVE HCG+C.LAB.BRZ ordered. EDMS EDMS 05:04 05:04 Transvaginal Ob+US.RAD.BRZ ordered. EDMS EDMS 06:34 06:34 UA Rfx Shyam Cult if indicated+U.LAB.BRZ ordered. EDMS EDMS
--- NOTE | 2024-08-01 06:40 | ER ---
Nurse's Notes [facility] Name: Veda Kraus Age: 23 yrs Sex: Female : 2000 Arrival Date: 08/01/2024 Time: 04:49 Bed 16 Private MD: Diagnosis: 12 weeks gestation of ;Abdominal tenderness;UTI/ Urinary tract infection, site not specified Presentation: 08/01 05:22 Chief complaint: Patient states: I am and i have had abdominal cramping since kd3 9 pm last night. No bleeding or spotting. 10 pain. Coronavirus screen: Vaccine status: Patient reports being unvaccinated. Ebola Screen: No symptoms or risks identified at this time. Initial Sepsis Screen: Does the patient meet any 2 criteria? No. Patient's initial sepsis screen is negative. Does the patient have a suspected source of infection? No. Patient's initial sepsis screen is negative. Risk Assessment: Do you want to hurt yourself or someone else? Patient reports no desire to harm self or others. Onset of symptoms was August 01, 2024. 05:22 Method Of Arrival: Ambulatory kd3 05:22 Acuity: SHIRA 3 kd3 Triage Assessment: 05:23 General: Appears uncomfortable, Behavior is cooperative, anxious. Pain: Complains of kd3 pain in suprapubic area, right lower quadrant and left lower quadrant. GI: Abdomen is non-distended. 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 - Infectious Disease History:: Denies. - Family history:: not pertinent. - Social history:: Smoking status: Patient denies any tobacco usage or history of. Screenin:21 [facility] ED Fall Risk Assessment (Adult) History of falling in the last 3 months, kd3 including since admission No falls in past 3 months (0 pts) Confusion or Disorientation No (0 pts) Intoxicated or Sedated No (0 pts) Impaired Gait No (0 pts) Mobility Assist Device Used No (0 pt) Altered Elimination No (0 pt) Score/Fall Risk Level 0 - 2 = Low Risk Oriented to surroundings. Abuse screen: Denies threats or abuse. Denies injuries from another. Nutritional screening: No deficits noted. Tuberculosis screening: No symptoms or risk factors identified. Assessment: 05:32 General: PT taken to US via wheelchair with [employer] tech . kd3 06:21 GI: Bowel sounds present X 4 quads. Abdomen is tender to palpation in suprapubic area. kd3 07:28 General: Appears in no apparent distress. comfortable, well groomed, well developed, kc6 Behavior is calm, cooperative, appropriate for age. Pain: Complains of pain in right lower quadrant and left lower quadrant and suprapubic area Quality of pain is described as crampy, dull. Neuro: Level of Consciousness is awake, alert, obeys commands, Oriented to person, place, time, situation, Appropriate for age. Cardiovascular: Capillary refill < 3 seconds. Respiratory: Airway is patent Trachea midline Respiratory effort is even, unlabored, Respiratory pattern is regular, symmetrical. GI: Abdomen is flat, non-distended, Bowel sounds present X 4 quads. Abd is soft X 4 quads Abdomen is tender to palpation in right lower quadrant and left lower quadrant and suprapubic area Reports lower abdominal pain, cramping, Patient currently denies diarrhea. : No signs and/or symptoms were reported regarding the genitourinary system. Urine is clear. EENT: No signs and/or symptoms were reported regarding the EENT system. Derm: No signs and/or symptoms reported regarding the dermatologic system. Skin is intact, is healthy with good turgor, Skin is pink, warm \T\ dry. Musculoskeletal: No signs and/or symptoms reported regarding the musculoskeletal system. Circulation, motion, and sensation intact. Range of motion: intact in all extremities. Vital Signs: 05:22 BP 136 / 89; Pulse 83; Resp 18; Temp 98.3(O); Pulse Ox 100% on R/A; Weight 65.77 kg; kd3 Height 5 ft. 2 in. ; 06:20 BP 117 / 70; Pulse 70; Resp 16; Pulse Ox 100% ; kd3 05:22 Body Mass Index 26.52 (65.77 kg, 157.48 cm) kd3 ED Course: 04:53 Patient arrived in ED. gm2 04:56 Alberto Villalobos MD is Attending Physician. raymundo 04:59 Ena Monae, RN is Primary Nurse. kd3 05:23 Triage completed. kd3 05:24 Abo/rh Typing Sent. kd3 05:24 Basic Metabolic Panel Sent. kd3 05:24 CBC with Diff Sent. kd3 05:24 Test, Urine Sent. kd3 05:25 Quantitative Hcg Sent. kd3 05:25 Inserted saline lock: 20 gauge in right antecubital area, using aseptic technique. kd3 Blood collected. Flushed with 10 mL NS. 05:25 Arm band placed on right wrist. kd3 05:42 US Transvaginal Ob In Process Unspecified. EDMS 06:21 No provider procedures requiring assistance completed. kd3 06:21 Patient has correct armband on for positive identification. Provided Education on: kd3 ultrasound . 06:56 UA Rfx Shyam Cult if indicated Sent. kd3 07:05 Report received from Ena Ko RN. kc6 07:05 Patient has correct armband on for positive identification. Bed in low position. Call kc6 light in reach. Side rails up X 1. Adult w/ patient. Pulse ox on. NIBP on. Door closed. Noise minimized. Lights dimmed. Warm blanket given. Pillow given. Verbal reassurance given. 07:28 IV discontinued, intact, bleeding controlled, No redness/swelling at site. Pressure kc6 dressing applied. Patient maintains SpO2 saturation greater than 95% on room air. Administered Medications: 05:39 Drug: NS 0.9% IV 1000 ml IV at 1000 ml once; to be given as a bolus over 60 minutes kd3 Route: IV; Rate: 1000 ml; Site: left antecubital; 07:08 Follow up: Response: No adverse reaction; IV Status: Completed infusion; IV Intake: kc6 1000ml 07:27 Drug: Rocephin IV 1 grams IV at per protocol once; Given slow IV push per pharmacy kc6 instructions Route: IV; Rate: per protocol; Site: right antecubital; Medication: 06:22 VIS not applicable for this client. kd3 Intake: 07:08 IV: 1000ml; Total: 1000ml. kc6 Outcome: 06:39 Discharge ordered by . [facility] 07:29 Discharged to home ambulatory, with family, with significant other, kc6 07:29 Condition: improved 07:29 Discharge instructions given to patient, significant other, Instructed on discharge instructions, follow up and referral plans. medication usage, Demonstrated understanding of instructions, follow-up care, medications, Prescriptions given X 1, :29 Patient left the ED. kc6 Signatures: Dispatcher [employer] EDAlberto Quesada MD MD cha Doucette, Kyli, RN RN kd3 Paloma Mary RN RN kc6 Cecy Moore 2 Corrections: (The following items were deleted from the chart) 07:27 Rocephin IV 1 grams IV at per protocol in left antecubital kc6 kc6
[2024-08-01 07:06] LABS: Specific Gravity 1.008 (1.005-1.030); Sqamous Epithelial <5 /HPF (None Seen); Urine Bacteria <20 /HPF (<20); Urine Bilirubin NEGATIVE (Negative); Urine Blood Negative (Negative); Urine Clarity Turbid (Clear); Urine Color Colorless (Yellow); Urine Culture Reflex Order NOT NEEDED; Urine Glucose NEGATIVE (Negative); Urine Ketones NEGATIVE (Negative); Urine Microscopic Reflex YN ORDER UMIC; Urine Nitrite NEGATIVE (Negative); Urine Protein NEGATIVE (Negative); Urine RBC <5 /HPF (None Seen); Urine Urobilinogen Normal (Normal); Urine WBC <5 /HPF (<5); Urine pH 7.5 (5.0-7.0)
[2024-08-01] MEDS ORDERED: CEFTRIAXONE 1000 MG/VIAL ONE (07:12)
[2024-08-01 07:48] VITALS: TEMP 98.3; O2SAT 100
[2024-08-01 07:54] VITALS: BP 117/70
--- NOTE | 2024-08-01 09:12 | RAD REPORT ---
EXAM DESCRIPTION: Transvaginal OB RadLex: US TRANSVAGINAL CLINICAL HISTORY: 23 years Female ABD CRAMPING, COMPARISON: None TECHNIQUE: Transverse and longitudinal sonograms obtained with transabdominal grayscale sonography. Doppler eval uation FINDINGS: Uterus measures 13.8 x 8.1 x 4.5 cm. Myometrium unremarkable. Cervical length 3.47 cm, closed. Single live intrauterine gestation identified. Gestational sac containing pole. Mean sac diameter 5.92 cm. [place]-rump length 5.66 cm. Femur length 0.98 cm Ultrasound gestational age 12 weeks 5 day. Ultrasound estimated date of delivery February 08, 2025 heart rate 150 BPM Amniotic fluid volume appears unremarkable Left ovary measures 4.3 x 1.8 x 2.8 cm. Blood flow present with Doppler Right ovary not identified No adnexal cyst or mass IMPRESSION: 1. Single live intrauterine gestation 2. Ultrasound gestational age 12 weeks 5 days 3. parameters as above Electronically signed by: Julien Mattson MD 08/01/2024 09:01 AM [facility] Due to temporary technical issues with the PACS/[employer] App reporting system, reports are being kaley d by the in-house radiologist without review as a courtesy to ensure prompt reporting the interpreting radiologist is fully responsible for the content of the report. Transcribed Date/Time: 08/01/2024 9:12 AM
== END 2024-08-01 07:29 | disposition home or self-care (01) ==
LOC: ER 04:49
DX: O23.41 Unspecified infection of urinary tract in pregnancy, first trimester (principal); N39.0 Urinary tract infection, site not specified; Z3A.12 12 weeks gestation of pregnancy
CPT/HCPCS: 96361; 85025; 81001; 80048; 36415; 86900; 81025; 86901; 84702; 76817; 96374; 99284; J7030; J0696